=== PATIENT | male | born 1970 | race African-American/Black ===

== ENCOUNTER 2017-06-29 12:30 | Inpatient (IN) | payer MEDICARE, MEDICAID ==
[~2017-06-29] VITALS: Ht 180.3 cm; Wt 70.8 kg
[~2017-06-29 12:30] MED LIST: ACET325T9 PO; AMLO10TA2 PO; AMLO5TAB2 PO; COLC0.6C3 PO; COLC0.6T34 PO; FOLI1TAB16 PO; FURO40TA4 PO; HYDR-2758 PO; HYDR-2762 PO; HYDR-2766 PO; METO50TA2 PO; OXYC10TA PO; PRED20TA PO; SODI650T PO; Sennosides/Docusate Sodium PO; [UNRECOGNIZED DRUG - OTHER]; folic; sodium bicarbonate
--- NOTE | 2017-06-29 13:04 | PHYS DOC ---
Past Medical History Past Medical History: Anemia, Hypertension, Renal Failure, Sickle Cell Disease Past Surgical History: No Surgical History, Other Additional Past Surgical Histo: "surgery on hand for injury" Alcohol Use: Occasionally Drug Use: Marijuana Adult General Chief Complaint Chief Complaint: LOWER EXT PAIN HPI HPI Patient is a 47 year old male who presents with left leg pain & swelling. The patient reports pain behind his left knee & in his left calf. Denies trauma. Reports increased bilateral lower extremity swelling. Denies fevers/chills, cough, chest pain, shortness of breath. He has history of sickle cell anemia though this is unusual pain pattern for him until the past 2 months. Denies CHF but chart indicates previous admit for CHF exacerbation. Denies DVT/PE. Review of Systems Review of Systems Constitutional: Denies fever or chills Eyes: Denies change in visual acuity HENT: Denies nasal congestion or sore throat Respiratory: Denies cough or shortness of breath Cardiovascular: Denies chest pain or edema GI: Denies abdominal pain, nausea, vomiting Musculoskeletal: Reports knee and lower extremity pain Integument: Denies rash or skin lesions Neurologic: Denies headache, focal weakness or sensory changes Allergies Allergies Allergies Coded Allergies Type Severity Reaction Last Updated Verified morphine Allergy Severe Anaphylaxis, takes lortab at home 10/10/16 Yes Physical Exam Physical Exam Constitutional: Well developed, well nourished, no acute distress, non-toxic appearance. HENT: Normocephalic, atraumatic, bilateral external ears normal, oropharynx moist, nose normal. Eyes: PERRLA, EOMI, conjunctiva normal, no discharge. Neck: supple, no stridor. Cardiovascular: RRR, no murmurs, edema as below Lungs & Thorax: LCTAB, no wheezing, no respiratory distress. Abdomen: soft, nontender, nondistended. Skin: Warm, dry, no erythema, no rash. Back: No tenderness. Extremities: Bilateral lower extremities 2+ pitting edema extending to calves, left knee no swelling or deformity, no anterior or medial/lateral tenderness, tenderness posteriorly, calf tenderness with palpation, dp/pt 2+, sensation intact to foot, foot is warm with cap refill < 2 sec. Neurologic: Alert and oriented X 3, no focal deficits noted. Psychologic: Affect normal, judgement normal, mood normal. Current Patient Data Vital Signs Vital Signs Date Time Temp Pulse Resp B/P (MAP) Pulse Ox O2 Delivery O2 Flow Rate FiO2 06/29/17 13:41 76 25 186/120 (142) 96 Nasal Cannula 2.0 06/29/17 12:46 99.2 99.2 Lab Values Laboratory Tests Test 06/29/17 13:08 White Blood Count 13.8 x10^3/uL (4.0-11.0) H Red Blood Count 1.83 x10^6/uL (4.30-5.70) L Hemoglobin 6.1 g/dL (13.0-17.5) *L Hematocrit 17.3 % (39.0-53.0) *L Mean Corpuscular Volume 95 fL (79-100) Mean Corpuscular Hemoglobin 34 pg (25-35) Mean Corpuscular Hemoglobin Concent 36 g/dL (31-37) Red Cell Distribution Width 24.8 % (11.5-14.5) H Platelet Count 203 x10^3/uL (140-400) Neutrophils (%) (Auto) 40 % (31-73) Lymphocytes (%) (Auto) 44 % (24-48) Monocytes (%) (Auto) 12 % (0-9) H Eosinophils (%) (Auto) 3 % (0-3) Basophils (%) (Auto) 2 % (0-3) Neutrophils # (Auto) 5.5 x10^3uL (1.8-7.7) Lymphocytes # (Auto) 6.1 x10^3/uL (1.0-4.8) H Monocytes # (Auto) 1.6 x10^3/uL (0.0-1.1) H Eosinophils # (Auto) 0.4 x10^3/uL (0.0-0.7) Basophils # (Auto) 0.3 x10^3/uL (0.0-0.2) H Platelet Estimate Pending Reticulocyte Count (auto) 8.3 % (0.5-2.5) H Prothrombin Time 13.0 SEC (11.7-14.0) Prothrombin Time INR 1.0 (0.8-1.1) PTT 30 SEC (24-38) Sodium Level 142 mmol/L (136-145) Potassium Level 3.8 mmol/L (3.5-5.1) Chloride Level 102 mmol/L (98-107) Carbon Dioxide Level 37 mmol/L (21-32) H Anion Gap 3 (6-14) L Blood Urea Nitrogen 26 mg/dL (8-26) Creatinine 2.2 mg/dL (0.7-1.3) H Estimated GFR (Cockcroft-Gault) 39.2 BUN/Creatinine Ratio 12 (6-20) Glucose Level 84 mg/dL (70-99) Calcium Level 7.9 mg/dL (8.5-10.1) L Total Bilirubin 2.0 mg/dL (0.2-1.0) H Aspartate Amino Transferase (AST) 65 U/L (15-37) H Alanine Aminotransferase (ALT) 21 U/L (16-63) Alkaline Phosphatase 174 U/L (46-116) H Troponin I Quantitative < 0.017 ng/mL (0.000-0.055) BZ-Ewa-N-Type Natriuretic Peptide 2405 pg/mL (0-124) H Total Protein 6.7 g/dL (6.4-8.2) Albumin 2.4 g/dL (3.4-5.0) L Albumin/Globulin Ratio 0.6 (1.0-1.7) L Laboratory Tests 06/29/17 13:08 Laboratory Tests 06/29/17 13:08 EKG EKG interpreted by me: NSR rate 73, no ST elevation, T waves inverted leads V5-V6, QTc prolonged 489 ms, no ectopy.[] Radiology/Procedures Radiology/Procedures PROCEDURE: VENOUS LOWER EXTREMITY LEFT Exam performed: Left lower extremity venous Doppler. Clinical Indication: Left lower maturity venous and swelling Date of Service:06/29/17 Comparison : None available Discussion: Multiple longitudinal and transverse high resolution real-time images of the venous system of left lower extremity were obtained with color and Doppler sampling and spectral analysis. The common femoral, superficial femoral, popliteal and proximal calf veins are all patent and demonstrate normal flow and compressibility. Normal respiratory phasicity and augmentation is present. Lymph nodes are seen in the groin area. Soft tissue swelling is seen in the medial left calf. Impression: Normal color duplex ultrasound of the venous system of left lower extremity. DICTATED and SIGNED BY: RUSS BLANCO MD DATE: 06/29/17 1336 PROCEDURE: KNEE LEFT 4V Indication knee pain. Nontraumatic. AP oblique and lateral views of the left knee were obtained as well as a sunrise view. No bony abnormality is seen DICTATED and SIGNED BY: CLARISA SPAULDING MD DATE: 06/29/17 1431 PROCEDURE: CHEST AP ONLY Indication shortness of air. A single view of the chest was obtained and is compared to an exam October 10, 2016. There is generalized cardiomegaly similar to the previous study. There are patchy infiltrates and redistribution to the upper lobes suggesting a component of mild pulmonary vascular congestion. There is no focal consolidated pneumonia seen. There is no pleural fluid. There is no pneumothorax. IMPRESSION: Generalized cardiomegaly. Probable mild pulmonary vascular congestion. No focal consolidated pneumonia is seen DICTATED and SIGNED BY: CLARISA SPAULDING MD DATE: 06/29/17 1416 [] Course & Med Decision Making Course & Med Decision Making Pertinent Labs and Imaging studies reviewed. (See chart for details) The patient presents with leg pain & swelling. Noted to be hypoxic on room air with sats 89% on room air. Placed on oxygen by nasal cannula. Gave aspirin, obtained labs, EKG, CXR. He had pulmonary edema & peripheral edema with elevated BNP. Gave lasix. Hemoglobin is 6, baseline 5-6 so will not transfuse at this time but will repeat CBC in the AM. Gave hydralazine for HTN. Recommend admission for further evaluation & treatment. He agrees with plan of care. Discussed with Dr. Toro who agrees to admit to inpatient status, cardiology consult placed. The patient is admitted in stable condition. [] Dragon Disclaimer Dragon Disclaimer This electronic medical record was generated, in whole or in part, using a voice recognition dictation system. Departure Departure Impression: Primary Impression: CHF (congestive heart failure) Additional Impressions: Accelerated hypertension Chronic anemia Acute kidney failure Disposition: ADMITTED INPATIENT Admitting Physician: Gloria Toro Condition: STABLE Referrals: GLORIA TORO MD (PCP) Problem Qualifiers SAVANAH ECHEVARRIA MD Jun 29, 2017 13:04
[2017-06-29 13:28] LABS: BASO # 0.3 x10^3/uL (0.0-0.2); BASO % 2 % (0-3); EOS % 3 % (0-3); LYMPH # 6.1 x10^3/uL (1.0-4.8); LYMPH % 44 % (24-48); MEAN CORPUSCULAR HEMOGLOBIN 34 pg (25-35); MEAN CORPUSCULAR HGB CONC 36 g/dL (31-37); MEAN CORPUSCULAR VOLUME 95 fL (79-100); MONO % 12 % (0-9); NEUT % 40 % (31-73); PLATELET COUNT 203 x10^3/uL (140-400); RED BLOOD COUNT 1.83 x10^6/uL (4.30-5.70); RED CELL DISTRIBUTION WIDTH 24.8 % (11.5-14.5); WHITE BLOOD COUNT 13.8 x10^3/uL (4.0-11.0)
[2017-06-29 13:31] LABS: HEMATOCRIT 17.3 % (39.0-53.0); HEMOGLOBIN 6.1 g/dL (13.0-17.5)
[2017-06-29 13:32] LABS: RETIC COUNT 8.3 % (0.5-2.5)
[2017-06-29 13:40] LABS: CALCIUM 7.9 mg/dL (8.5-10.1); CREATININE 2.2 mg/dL (0.7-1.3); GFR 39.2; POTASSIUM 3.8 mmol/L (3.5-5.1)
--- NOTE | 2017-06-29 13:40 | EKG ---
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
--- NOTE | 2017-06-29 13:51 | RAD ---
Exam performed: Left lower extremity venous Doppler. Clinical Indication: Left lower maturity venous and swelling Date of Service:06/29/17 Comparison : None available Discussion: Multiple longitudinal and transverse high resolution real-time images of the venous system of left lower extremity were obtained with color and Doppler sampling and spectral analysis. The common femoral, superficial femoral, popliteal and proximal calf veins are all patent and demonstrate normal flow and compressibility. Normal respiratory phasicity and augmentation is present. Lymph nodes are seen in the groin area. Soft tissue swelling is seen in the medial left calf. Impression: Normal color duplex ultrasound of the venous system of left lower extremity.
[2017-06-29 13:53] LABS: ALBUMIN 2.4 g/dL (3.4-5.0); ALBUMIN/GLOBULIN RATIO 0.6 (1.0-1.7); TOTAL PROTEIN 6.7 g/dL (6.4-8.2)
[2017-06-29] MEDS ORDERED: hydrALAZINE 20 MG/ML VIAL. IVP ONE (14:30)
[2017-06-29] MEDS ORDERED: ASPIRIN 325 MG TABLET PO ONE (14:30)
[2017-06-29] MEDS ORDERED: FUROSEMIDE 40 MG/4 ML VIAL. IVP ONE (14:30)
--- NOTE | 2017-06-29 14:31 | RAD ---
Indication shortness of air. A single view of the chest was obtained and is compared to an exam October 10, 2016. There is generalized cardiomegaly similar to the previous study. There are patchy infiltrates and redistribution to the upper lobes suggesting a component of mild pulmonary vascular congestion. There is no focal consolidated pneumonia seen. There is no pleural fluid. There is no pneumothorax. IMPRESSION: Generalized cardiomegaly. Probable mild pulmonary vascular congestion. No focal consolidated pneumonia is seen
--- NOTE | 2017-06-29 14:35 | RAD ---
Indication knee pain. Nontraumatic. AP oblique and lateral views of the left knee were obtained as well as a sunrise view. No bony abnormality is seen
[2017-06-29] MEDS: fentaNYL PF VIAL 100 MCG/2 ML VIAL IV PRN ×3 (14:43→18:04)
[2017-06-29] MEDS ORDERED: ONDANSETRON PF 4 MG/2 ML VIAL. IV PRN (14:45)
[2017-06-29] MEDS ORDERED: ACETAMINOPHEN 325 MG TABLET. PO PRN (14:45)
--- NOTE | 2017-06-29 16:15 | PDOC2 ---
VICKY HARRELL SOLE SEAMER 06/29/17 1615: CARDIAC CONSULT DATE OF CONSULT Date of Consult DATE: 06/29/17 TIME: 15:54 REASON FOR CONSULT Reason for Consult: CHF REFERRING PHYSICIAN Referring Physician: DR. SAVANAH ECHEVARRIA SOURCE Source: Chart review, Patient HISTORY OF PRESENT ILLNESS HISTORY OF PRESENT ILLNESS 47 year old male with a 2 day history of constant left leg pain described as sharp and exacerbated by standing on the leg. Two month history of LE edema. Car trip from to [place] to [place] at the end of May. CXR not consistent with acute CHF. NT-proBNP 2405 associated with Hgb of 6.1 and Cr of 2.2; treated with 40 mg IV furosemide in the ER. LE venous study negative for DVT in LLE and no acute abnormalities seen in plain film of knee. HTN with SBP > 180. Currently comfortable in bed. EKG without acute changes. Denies chest pain or pressure as well as dyspnea, LUNA, PND and orthopnea. Reason for Visit: LLE pain PAST MEDICAL HISTORY Cardiovascular: HTN, Pulmonary hypertension (dx 2014 with PA of 75 mm Hg) GI: Constipation, Other (cholelithiasis; chronic pancreatitis) Heme/Onc: Anemia NOS, Sickle cell disease Rheumatologic: Gout Renal/: Chronic renal insuff (stage 3) PAST SURGICAL HISTORY Past Surgical History: No pertinent history FAMILY HISTORY Family History: Other (sickle cell) SOCIAL HISTORY Smoke: No ALCOHOL: none Drugs: None Lives: with Family CURRENT MEDICATIONS CURRENT MEDICATIONS Current Medications Medications (Trade) Dose Ordered Sig/Susana Route PRN Reason Start Time Stop Time Status Last Admin Dose Admin Fentanyl Citrate (Fentanyl 2ml Vial) 50 mcg PRN Q15MIN PRN IV PAIN GREATER THAN 3/10 06/29/17 14:30 06/30/17 14:29 06/29/17 14:43 Hydralazine HCl (Apresoline Inj) 10 mg 1X ONCE IVP 06/29/17 14:30 06/29/17 14:31 DC 06/29/17 14:48 Aspirin (Edgard Aspirin) 325 mg 1X ONCE PO 06/29/17 14:30 06/29/17 14:31 DC 06/29/17 14:46 Furosemide (Lasix) 40 mg 1X ONCE IVP 06/29/17 14:30 06/29/17 14:31 DC 06/29/17 14:45 Fentanyl Citrate (Fentanyl 2ml Vial) 50 mcg PRN Q2HR PRN IV PAIN 06/29/17 14:45 06/30/17 14:44 06/29/17 15:44 ALLERGIES ALLERGIES: Coded Allergies: morphine (Verified Allergy, Severe, Anaphylaxis, takes lortab at home, ) tolerates hydromorphone and hydrocodone ROS Review of System 14 point review with pertinent positives in HPI PHYSICAL EXAM General: Alert, Oriented X3, Cooperative, No acute distress HEENT: Atraumatic, PERRLA Lungs: Clear to auscultation, Normal air movement Heart: Regular rate, Normal S1, Normal S2, Other (3/6 CORY) Abdomen: Normal bowel sounds, Soft Extremities: Other (2+ LE edema bilaterally to about knees) Skin: No rashes Neuro: Normal speech Psych/Mental Status: Mental status NL, Mood NL MUSCULOSKELETAL: No deformity VITALS VITALS Vital Signs Date Time Temp Pulse Resp B/P (MAP) Pulse Ox O2 Delivery O2 Flow Rate FiO2 06/29/17 15:44 98 2.0 06/29/17 14:48 76 171/121 06/29/17 14:43 18 Room Air 06/29/17 12:46 99.2 99.2 LABS Lab: Laboratory Tests Test 06/29/17 13:08 White Blood Count 13.8 x10^3/uL (4.0-11.0) Red Blood Count 1.83 x10^6/uL (4.30-5.70) Hemoglobin 6.1 g/dL (13.0-17.5) Hematocrit 17.3 % (39.0-53.0) Mean Corpuscular Volume 95 fL (79-100) Mean Corpuscular Hemoglobin 34 pg (25-35) Mean Corpuscular Hemoglobin Concent 36 g/dL (31-37) Red Cell Distribution Width 24.8 % (11.5-14.5) Platelet Count 203 x10^3/uL (140-400) Neutrophils (%) (Auto) 40 % (31-73) Lymphocytes (%) (Auto) 44 % (24-48) Monocytes (%) (Auto) 12 % (0-9) Eosinophils (%) (Auto) 3 % (0-3) Basophils (%) (Auto) 2 % (0-3) Neutrophils # (Auto) 5.5 x10^3uL (1.8-7.7) Lymphocytes # (Auto) 6.1 x10^3/uL (1.0-4.8) Monocytes # (Auto) 1.6 x10^3/uL (0.0-1.1) Eosinophils # (Auto) 0.4 x10^3/uL (0.0-0.7) Basophils # (Auto) 0.3 x10^3/uL (0.0-0.2) Reticulocyte Count (auto) 8.3 % (0.5-2.5) Prothrombin Time 13.0 SEC (11.7-14.0) Prothromb Time International Ratio 1.0 (0.8-1.1) Activated Partial Thromboplast Time 30 SEC (24-38) Sodium Level 142 mmol/L (136-145) Potassium Level 3.8 mmol/L (3.5-5.1) Chloride Level 102 mmol/L (98-107) Carbon Dioxide Level 37 mmol/L (21-32) Anion Gap 3 (6-14) Blood Urea Nitrogen 26 mg/dL (8-26) Creatinine 2.2 mg/dL (0.7-1.3) Estimated GFR (Cockcroft-Gault) 39.2 BUN/Creatinine Ratio 12 (6-20) Glucose Level 84 mg/dL (70-99) Calcium Level 7.9 mg/dL (8.5-10.1) Total Bilirubin 2.0 mg/dL (0.2-1.0) Aspartate Amino Transf (AST/SGOT) 65 U/L (15-37) Alanine Aminotransferase (ALT/SGPT) 21 U/L (16-63) Alkaline Phosphatase 174 U/L (46-116) Troponin I Quantitative < 0.017 ng/mL (0.000-0.055) YP-Pis-M-Type Natriuretic Peptide 2405 pg/mL (0-124) Total Protein 6.7 g/dL (6.4-8.2) Albumin 2.4 g/dL (3.4-5.0) Albumin/Globulin Ratio 0.6 (1.0-1.7) IMAGES IMAGES A single view of the chest was obtained and is compared to an exam October 10, 2016. There is generalized cardiomegaly similar to the previous study. There are patchy infiltrates and redistribution to the upper lobes suggesting a component of mild pulmonary vascular congestion. There is no focal consolidated pneumonia seen. There is no pleural fluid. There is no pneumothorax. IMPRESSION: Generalized cardiomegaly. Probable mild pulmonary vascular congestion. No focal consolidated pneumonia is seen EKG EKG SR ECHOCARDIOGRAM ECHOCARDIOGRAM SEP 2016: TTE: The left ventricular systolic function is normal. The Ejection Fraction is 55-60%. There is normal LV segmental wall motion. Transmitral Doppler flow pattern is Grade I-abnormal relaxation pattern. The left atrium is moderately dilated. Trace to mild aortic regurgitation. Mild mitral regurgitation. Trace tricuspid regurgitation. There is moderate-severe pulmonary hypertension. The PA pressure was estimated at 59 mmHg. There is no evidence of significant pericardial effusion. ASSESSMENT/PLAN ASSESSMENT/PLAN 1. LLE pain negative for DVT or knee abnormality gout history 2. ? CHF CXR without significant findings and NT-proBNP elevated in the setting of CKD and anemia LLE - ? related to CKD and albumin level of 2.4 treated with Lasix in ER 3. murmur mild aortic and mitral disease on echo in Sep repeat echo tomorrow 4. sickle cell anemia Hgb 6.1 - defer to primary and/or heme-onc Problems: KAR GASTON MD 06/29/17 2219: CARDIAC CONSULT ALLERGIES ALLERGIES: Coded Allergies: morphine (Verified Allergy, Severe, Anaphylaxis, takes lortab at home, ) tolerates hydromorphone and hydrocodone ASSESSMENT/PLAN ASSESSMENT/PLAN Pt. seen and examined. 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 Problems: VICKY HARRELL APRN Jun 29, 2017 16:15 KAR GASTON MD Jun 29, 2017 22:19
[2017-06-29 16:20] LABS: % BASOS 1 % (0-3); % EOS 1 % (0-5); NUCLEATED RBC 5
[2017-06-29 16:22] LABS: ANISOCYTOSIS MOD; PLT ESTIMATE ADEQUATE (ADEQUATE); POLYCHROMASIA MOD; SICKLE CELLS MOD
[2017-06-29 16:23] LABS: SCHISTOCYTES FEW; TARGET CELLS MOD
[2017-06-29] MEDS ORDERED: FEBU80TA2 PO (16:23)
[2017-06-29] MEDS ORDERED: POTA20TA82 PO (16:23)
[2017-06-29] MEDS ORDERED: DOXA2TAB PO (16:23)
[2017-06-29] MEDS ORDERED: MONT10TA9 PO (16:23)
[2017-06-29] MEDS ORDERED: SODI650T PO (16:23)
[2017-06-29] MEDS ORDERED: FURO40TA4 PO (16:23)
[2017-06-29] MEDS ORDERED: CALCIUM CARBONATE 500 MG TAB.CHEW PO ONE (17:00)
[2017-06-29 19:45] VITALS: BP 146/93
[2017-06-29] MEDS: MONTELUKAST SODIUM 10 MG TABLET. PO SCH (20:29)
[2017-06-29] MEDS: SODIUM BICARBONATE 650 MG TABLET. PO SCH (20:29)
[2017-06-29] MEDS: HYDROcodone/APAP 10/325 1 TAB TABLET PO PRN (20:30)
[2017-06-29] MEDS ORDERED: METOPROLOL TART IMMED RELEASE 50 MG TABLET. PO SCH (21:00)
[2017-06-29 23:10] VITALS: BP 174/112
[2017-06-29] MEDS: hydrALAZINE 20 MG/ML VIAL. IVP PRN (23:42)
[2017-06-30 03:24] LABS: CALCIUM 8.1 mg/dL (8.5-10.1); CREATININE 2.3 mg/dL (0.7-1.3); GFR 37.2; POTASSIUM 3.9 mmol/L (3.5-5.1)
[2017-06-30 03:25] VITALS: BP 171/114
[2017-06-30 03:28] LABS: BASO # 0.2 x10^3/uL (0.0-0.2); BASO % 1 % (0-3); EOS % 3 % (0-3); LYMPH # 6.9 x10^3/uL (1.0-4.8); LYMPH % 52 % (24-48); MEAN CORPUSCULAR HEMOGLOBIN 33 pg (25-35); MEAN CORPUSCULAR HGB CONC 34 g/dL (31-37); MEAN CORPUSCULAR VOLUME 97 fL (79-100); MONO % 11 % (0-9); NEUT % 33 % (31-73); PLATELET COUNT 190 x10^3/uL (140-400); RED BLOOD COUNT 1.93 x10^6/uL (4.30-5.70); RED CELL DISTRIBUTION WIDTH 25.4 % (11.5-14.5); WHITE BLOOD COUNT 13.2 x10^3/uL (4.0-11.0)
[2017-06-30] MEDS: fentaNYL PF VIAL 100 MCG/2 ML VIAL IV PRN (03:32)
[2017-06-30 04:50] LABS: HEMOGLOBIN 6.4 g/dL (13.0-17.5)
[2017-06-30 04:51] LABS: HEMATOCRIT 18.7 % (39.0-53.0)
[2017-06-30] MEDS: HYDROcodone/APAP 10/325 1 TAB TABLET PO PRN ×3 (05:30→21:12)
[2017-06-30 07:00] VITALS: BP 178/107
--- NOTE | 2017-06-30 08:29 | PDOC1 ---
AGUILA CHAVEZ TUFTING MACHINE OPERATOR 06/30/17 0829: HISTORY AND PHYSICAL Chief Complaint Chief Complaint This 47 year old male has been admitted with a chief complaint of swelling pain LLE. He has been followed in the office for chronic swelling and pain of the left lower extremity with acute flares. Acute on chronic gout has been treated out patient by Dr. Boss. He is to be taking Uloric and colcrys. He has chronic sickle cell crisis with elevated retic counts in the office. He was to see Dr. Sweet out patient and did not keep appt. He has CKD III and is on sodium bicarb. He was to follow up with Dr. Tate out patient and did not keep appt. He has elevated pulmonary artery pressures and was to see cardiology out patient for probable pulmonary HTN and he did not keep appt. He presented to the ED yesterday with c/o increased swelling and pain in the LLE with inability to stand and walk. Venous doppler LLE negative for DVT but did note swelling medial calf. CXR mild pulmonary congestion suggestive CHF. BNP 2405 with underlying CKD III. He reports when laying flat will wake with shortness of breath. He received Lasix 40mg in the ER. WBC 13.8 with retic count 8.3. He has had chronic elevation WBC and retic count in the office. UA dip recently was negative and his only c/o is pain behind the L knee and swelling of the L leg which affects his ability to ambulate. He has been using a cane to stabilize his gait. He has CKD III and is on Lasix 40mg po for fluid retention. His Hgb was 6.1 on admission and he is transfused when less than 5.0. Due to the chronic anemia his O2 sats are low. He developed malignant HTN and hydralazine is ordered prn. Cardiology has been consulted. Additional consultations have been placed with hematology and nephrology. He is admitted to the [facility]. Problem List Problems Medical Problems: (1) Accelerated hypertension Status: Acute (2) Acute kidney failure Status: Acute (3) Chronic anemia Status: Acute Past Medical History Cardiovascular: CHF (diastolic EF 55-60% Sep 2016), HTN, Valve insufficiency ( tr to mild AR, mild MR tr TR ), Pulmonary hypertension (dx 2016 with PA of 59 mm Hg) Pulmonary: Other GI: Constipation, Other (cholelithiasis; chronic pancreatitis) Heme/Onc: Anemia NOS (Sickle cell ), Sickle cell disease Hepatobiliary: Cholelithiasis, Other (chronic pancreatitis ) Musculoskeletal: Other Rheumatologic: Gout Renal/: Chronic renal insuff (CKD III baseline Cr 1.8-2.1) Past Surgical History PSH LH surgery Past Surgical History: No pertinent history Past Family History PFH SS trait parents Family History: Other (sickle cell) Past Social History PSH single, h/o cigarette smoking, current cigar smoking. Neg ETOH or illicit drug use. Review of Symptoms Review of Symptoms A 14 point ROS was completed with the following noted as positive: per HPI Other systems reviewed and negative. Medications Current Medications Acetaminophen (Tylenol) 650 mg PRN Q4HRS PRN PO FEVER; Start 06/29/17 at 14:45 ; Stop 06/30/17 at 14:44 Acetaminophen/ Hydrocodone Bitart (Lortab 10/325) 1 tab PRN Q6HRS PRN PO PAIN Last administered on 06/30/17 05:30; Start 06/29/17 at 18:15 Amlodipine Besylate (Norvasc) 5 mg DAILY PO ; Start 06/30/17 at 09:00 Aspirin (Edgard Aspirin) 325 mg 1X ONCE PO Last administered on 06/29/17 14:46 ; Start 06/29/17 at 14:30; Stop 06/29/17 at 14:31; Status DC Calcium Carbonate/ Glycine (Tums) 500 mg 1X ONCE PO ; Start 06/29/17 at 17:00; Stop 06/29/17 at 17:01; Status Cancel Doxazosin Mesylate (Cardura) 2 mg DAILY PO ; Start 06/30/17 at 09:00 Febuxostat (Uloric) 80 mg DAILY PO ; Start 06/30/17 at 09:00 Fentanyl Citrate (Fentanyl 2ml Vial) 50 mcg PRN Q15MIN PRN IV PAIN GREATER THAN 3/10 Last administered on 06/29/17 18:04; Start 06/29/17 at 14:30; Stop 06/30/17 at 14:29 Fentanyl Citrate (Fentanyl 2ml Vial) 50 mcg PRN Q2HR PRN IV PAIN Last administered on 06/30/17 03:32; Start 06/29/17 at 14:45; Stop 06/30/17 at 14: 44 Folic Acid (Folic Acid) 1 mg DAILY PO ; Start 06/30/17 at 09:00 Furosemide (Lasix) 40 mg 1X ONCE IVP Last administered on 06/29/17 14:45; Start 06/29/17 at 14:30; Stop 06/29/17 at 14:31; Status DC Furosemide (Lasix) 40 mg DAILY PO ; Start 06/30/17 at 09:00 Hydralazine HCl (Apresoline Inj) 10 mg 1X ONCE IVP Last administered on 14:48; Start 06/29/17 at 14:30; Stop 06/29/17 at 14:31; Status DC Hydralazine HCl (Apresoline Inj) 10 mg PRN Q4HRS PRN IVP ELEVATED BP, SEE COMMENTS Last administered on 06/29/17 23:42; Start 06/29/17 at 16:00 Metoprolol Tartrate (Lopressor) 50 mg BID PO Last administered on 06/29/17 20: 29; Start 06/29/17 at 21:00 Montelukast Sodium (Singulair) 10 mg HS PO Last administered on 06/29/17 20:29 ; Start 06/29/17 at 21:00 Ondansetron HCl (Zofran) 4 mg PRN Q8HRS PRN IV NAUSEA/VOMITING; Start 06/29/17 at 14:45; Stop 06/30/17 at 14:44 Potassium Chloride (Klor-Con) 20 meq DAILYWBKFT PO ; Start 06/30/17 at 08:00 Sodium Bicarbonate (Sodium Bicarbonate) 1,300 mg TID PO Last administered on 20:29; Start 06/29/17 at 21:00 Allergy Allergies Coded Allergies Type Severity Reaction Last Updated Verified morphine Allergy Severe Anaphylaxis, takes lortab at home 10/10/16 Yes Physical Exam Physical Exam General appearance - alert, ill appearing, and in no distress Mental Status - alert, oriented to person, place, and time, affect appropriate to mood Head - normal Chest - clear to auscultation, no wheezes, rales or rhonchi, symmetric air entry Heart - S1 and S2 normal Abdomen - soft, nontender, nondistended, BS + Musculoskeletal - mild swelling medial L calf and tender post knee. swelling subsided anterior knee Extremities - no pedal edema Skin - warm and dry VTE Prophylaxis Ordered VTE Prophylaxis Devices: Yes VTE Pharmacological Prophylaxi: No Assessment Labs Laboratory Tests Test 06/29/17 13:08 06/29/17 20:45 06/30/17 02:35 White Blood Count 13.8 x10^3/uL (4.0-11.0) 13.2 x10^3/uL (4.0-11.0) Red Blood Count 1.83 x10^6/uL (4.30-5.70) 1.93 x10^6/uL (4.30-5.70) Hemoglobin 6.1 g/dL (13.0-17.5) 6.4 g/dL (13.0-17.5) Hematocrit 17.3 % (39.0-53.0) 18.7 % (39.0-53.0) Mean Corpuscular Volume 95 fL (79-100) 97 fL (79-100) Mean Corpuscular Hemoglobin 34 pg (25-35) 33 pg (25-35) Mean Corpuscular Hemoglobin Concent 36 g/dL (31-37) 34 g/dL (31-37) Red Cell Distribution Width 24.8 % (11.5-14.5) 25.4 % (11.5-14.5) Platelet Count 203 x10^3/uL (140-400) 190 x10^3/uL (140-400) Neutrophils (%) (Auto) 40 % (31-73) 33 % (31-73) Lymphocytes (%) (Auto) 44 % (24-48) 52 % (24-48) Monocytes (%) (Auto) 12 % (0-9) 11 % (0-9) Eosinophils (%) (Auto) 3 % (0-3) 3 % (0-3) Basophils (%) (Auto) 2 % (0-3) 1 % (0-3) Neutrophils # (Auto) 5.5 x10^3uL (1.8-7.7) 4.3 x10^3uL (1.8-7.7) Lymphocytes # (Auto) 6.1 x10^3/uL (1.0-4.8) 6.9 x10^3/uL (1.0-4.8) Monocytes # (Auto) 1.6 x10^3/uL (0.0-1.1) 1.5 x10^3/uL (0.0-1.1) Eosinophils # (Auto) 0.4 x10^3/uL (0.0-0.7) 0.4 x10^3/uL (0.0-0.7) Basophils # (Auto) 0.3 x10^3/uL (0.0-0.2) 0.2 x10^3/uL (0.0-0.2) Segmented Neutrophils % 50 % (35-66) Band Neutrophils % 2 % (0-9) Lymphocytes % 39 % (24-48) Monocytes % 7 % (0-10) Eosinophils % 1 % (0-5) Basophils % 1 % (0-3) Nucleated Red Blood Cells 5 Platelet Estimate Adequate (ADEQUATE) Polychromasia Mod Anisocytosis Mod Sickle Cells Mod Target Cells Mod Schistocytes Few Reticulocyte Count (auto) 8.3 % (0.5-2.5) Prothrombin Time 13.0 SEC (11.7-14.0) Prothromb Time International Ratio 1.0 (0.8-1.1) Activated Partial Thromboplast Time 30 SEC (24-38) Sodium Level 142 mmol/L (136-145) 143 mmol/L (136-145) Potassium Level 3.8 mmol/L (3.5-5.1) 3.9 mmol/L (3.5-5.1) Chloride Level 102 mmol/L (98-107) 104 mmol/L (98-107) Carbon Dioxide Level 37 mmol/L (21-32) 32 mmol/L (21-32) Anion Gap 3 (6-14) 7 (6-14) Blood Urea Nitrogen 26 mg/dL (8-26) 28 mg/dL (8-26) Creatinine 2.2 mg/dL (0.7-1.3) 2.3 mg/dL (0.7-1.3) Estimated GFR (Cockcroft-Gault) 39.2 37.2 BUN/Creatinine Ratio 12 (6-20) Glucose Level 84 mg/dL (70-99) 115 mg/dL (70-99) Calcium Level 7.9 mg/dL (8.5-10.1) 8.1 mg/dL (8.5-10.1) Total Bilirubin 2.0 mg/dL (0.2-1.0) Aspartate Amino Transf (AST/SGOT) 65 U/L (15-37) Alanine Aminotransferase (ALT/SGPT) 21 U/L (16-63) Alkaline Phosphatase 174 U/L (46-116) Troponin I Quantitative < 0.017 ng/mL (0.000-0.055) < 0.017 ng/mL (0.000-0.055) < 0.017 ng/mL (0.000-0.055) YM-Yow-[id number]-Type Natriuretic Peptide 2405 pg/mL (0-124) Total Protein 6.7 g/dL (6.4-8.2) Albumin 2.4 g/dL (3.4-5.0) Albumin/Globulin Ratio 0.6 (1.0-1.7) Laboratory Tests Test 06/29/17 13:08 06/29/17 20:45 06/30/17 02:35 White Blood Count 13.8 x10^3/uL (4.0-11.0) 13.2 x10^3/uL (4.0-11.0) Red Blood Count 1.83 x10^6/uL (4.30-5.70) 1.93 x10^6/uL (4.30-5.70) Hemoglobin 6.1 g/dL (13.0-17.5) 6.4 g/dL (13.0-17.5) Hematocrit 17.3 % (39.0-53.0) 18.7 % (39.0-53.0) Mean Corpuscular Volume 95 fL (79-100) 97 fL (79-100) Mean Corpuscular Hemoglobin 34 pg (25-35) 33 pg (25-35) Mean Corpuscular Hemoglobin Concent 36 g/dL (31-37) 34 g/dL (31-37) Red Cell Distribution Width 24.8 % (11.5-14.5) 25.4 % (11.5-14.5) Platelet Count 203 x10^3/uL (140-400) 190 x10^3/uL (140-400) Neutrophils (%) (Auto) 40 % (31-73) 33 % (31-73) Lymphocytes (%) (Auto) 44 % (24-48) 52 % (24-48) Monocytes (%) (Auto) 12 % (0-9) 11 % (0-9) Eosinophils (%) (Auto) 3 % (0-3) 3 % (0-3) Basophils (%) (Auto) 2 % (0-3) 1 % (0-3) Neutrophils # (Auto) 5.5 x10^3uL (1.8-7.7) 4.3 x10^3uL (1.8-7.7) Lymphocytes # (Auto) 6.1 x10^3/uL (1.0-4.8) 6.9 x10^3/uL (1.0-4.8) Monocytes # (Auto) 1.6 x10^3/uL (0.0-1.1) 1.5 x10^3/uL (0.0-1.1) Eosinophils # (Auto) 0.4 x10^3/uL (0.0-0.7) 0.4 x10^3/uL (0.0-0.7) Basophils # (Auto) 0.3 x10^3/uL (0.0-0.2) 0.2 x10^3/uL (0.0-0.2) Segmented Neutrophils % 50 % (35-66) Band Neutrophils % 2 % (0-9) Lymphocytes % 39 % (24-48) Monocytes % 7 % (0-10) Eosinophils % 1 % (0-5) Basophils % 1 % (0-3) Nucleated Red Blood Cells 5 Platelet Estimate Adequate (ADEQUATE) Polychromasia Mod Anisocytosis Mod Sickle Cells Mod Target Cells Mod Schistocytes Few Reticulocyte Count (auto) 8.3 % (0.5-2.5) Prothrombin Time 13.0 SEC (11.7-14.0) Prothromb Time International Ratio 1.0 (0.8-1.1) Activated Partial Thromboplast Time 30 SEC (24-38) Sodium Level 142 mmol/L (136-145) 143 mmol/L (136-145) Potassium Level 3.8 mmol/L (3.5-5.1) 3.9 mmol/L (3.5-5.1) Chloride Level 102 mmol/L (98-107) 104 mmol/L (98-107) Carbon Dioxide Level 37 mmol/L (21-32) 32 mmol/L (21-32) Anion Gap 3 (6-14) 7 (6-14) Blood Urea Nitrogen 26 mg/dL (8-26) 28 mg/dL (8-26) Creatinine 2.2 mg/dL (0.7-1.3) 2.3 mg/dL (0.7-1.3) Estimated GFR (Cockcroft-Gault) 39.2 37.2 BUN/Creatinine Ratio 12 (6-20) Glucose Level 84 mg/dL (70-99) 115 mg/dL (70-99) Calcium Level 7.9 mg/dL (8.5-10.1) 8.1 mg/dL (8.5-10.1) Total Bilirubin 2.0 mg/dL (0.2-1.0) Aspartate Amino Transf (AST/SGOT) 65 U/L (15-37) Alanine Aminotransferase (ALT/SGPT) 21 U/L (16-63) Alkaline Phosphatase 174 U/L (46-116) Troponin I Quantitative < 0.017 ng/mL (0.000-0.055) < 0.017 ng/mL (0.000-0.055) < 0.017 ng/mL (0.000-0.055) IN-Zix-V-Type Natriuretic Peptide 2405 pg/mL (0-124) Total Protein 6.7 g/dL (6.4-8.2) Albumin 2.4 g/dL (3.4-5.0) Albumin/Globulin Ratio 0.6 (1.0-1.7) Plan Plan IMPRESSION: 1. a/c CHF diastolic with normal EF 55-60% Sep 2016 ECHO 2. malignant HTN 3, Acute on chronic L knee pain with swelling 4. anemia SS chronic baseline Hgb 5.0-6.0 5. Sickle cell crisis with elevated retic count 8.3 on admission 6. CKD III baseline Cr 1.8-2.1 7. probable pulmonary HTN with PA pressure Sep 8. valvular insufficiency tr- mild AR, mild MR tr TR 9. Swelling medial calf noted on Venous US LLE 10.moderate chronic PCL malnutrition 11. abnormal LFTs with h/o chronic pancreatitis/cholelithiasis asymptomatic on admission 12. hypoxia chronic secondary to chronic anemia not acute respiratory failure PLAN 06/30/17 CHF -cardiology consult - ECHO pending - CXR mild pulmonary edema - Sep baseline BNP 300s - admit BNP 2405 - Lasix 40mg IV ED - chronic Lasix 40mg po daily -DC weight Sep 162# admit 156.38# LLE pain/swelling - h/o gout flare -check uric acid - continue uloric and restart colcrys 0.6mg daily - swelling improved - L medial calf soft tissue swelling noted = doppler tissue swell and post knee pending SSC - consult hematology -retic count 8.3 with admit WBC 13.8 today 13.2 - no sepsis anemia - Admit Hgb 6.2 today 6.1 monitor - transfuse less than 5.0 or symptomatic malignant HTN - Amlodipine 5mg daily, cardura 2mg at hs, increase metoprolol tart to 100mg daily and monitor for HR <55, hydralazine prn CKD III with worsening renal function - consult nephrology - Admit BUN 26 today 28 - Cr 2.2 today 2.3 elevated LFTS Admit T bili 2.0 AST 65 ALT 21 AP 174 monitor DVT/GI prophylaxis - OOB and ambulation PPI For more details regarding further plans, please refer to the orders. TAWANDA SALAS MD 06/30/17 0939: HISTORY AND PHYSICAL Plan Plan The patient was seen and examined by me. Chart reviewed and plan of care formulated. Discussed with, reviewed and agree with FARM EQUIPMENT MECHANIC's notes, plan of care and orders with modifications as necessary. For more details regarding further plans, please refer to the orders. AGUILA CHAVEZ APRN Jun 30, 2017 08:29 TAWANDA SALAS MD Jun 30, 2017 09:39
[2017-06-30] MEDS ORDERED: METOPROLOL TART IMMED RELEASE 50 MG TABLET. PO SCH (09:00)
[2017-06-30] MEDS ORDERED: DOXAZOSIN MESYLATE 1 MG TABLET. PO SCH (09:00)
[2017-06-30] MEDS ORDERED: amLODIPine BESYLATE 5 MG TABLET PO SCH (09:00)
[2017-06-30] MEDS: SODIUM BICARBONATE 650 MG TABLET. PO SCH ×3 (09:08→21:08)
[2017-06-30] MEDS: FEBUXOSTAT 40 MG TABLET PO SCH (09:08)
[2017-06-30] MEDS: FOLIC ACID 1 MG TABLET. PO SCH (09:08)
[2017-06-30] MEDS: COLCHICINE 0.6 MG TABLET PO SCH (09:08)
[2017-06-30] MEDS: FUROSEMIDE 40 MG TABLET. PO SCH (09:09)
[2017-06-30] MEDS: POTASSIUM CHLORIDE 20 MEQ TABLET.ER. PO SCH (09:09)
[2017-06-30] MEDS: hydrALAZINE 20 MG/ML VIAL. IVP PRN (09:15)
--- NOTE | 2017-06-30 10:48 | RAD ---
Exam performed: Ultrasound evaluation of the left calf. History: Pain left calf and popliteal fossa. Date of service: 06/30/17. Comparison: None available Discussion: Target sonographic evaluation of the left calf and popliteal fossa is performed and images are obtained. No abnormal fluid collection or solid masses are seen in the popliteal fossa and in the area of pain. Impression: No definite sonographic abnormality seen.
[2017-06-30 11:00] VITALS: BP 161/98
--- NOTE | 2017-06-30 11:25 | PDOC2 ---
CONSULT Date of Consult Date of Consult DATE: 06/30/17 TIME: 11:18 Reason for Consult Reason for Consult: RENAL FAILURE Referring Physician Referring Physician: MARITZA Identification/Chief Complaint Chief Complaint SOME SOB AND LEFT LE PAIN AND SWELLING Problems: Source Source: Chart review, Patient History of Present Illness Reason for Visit: THIS IS A 47 YR OLD ADMITTED WITH SOME SOB AND CHF AND LEFT LE PAIN AND SWELLING. BP IS VERY HIGH. HE HAS CKD STAGE 3 WITH A CR OF ABOUT 2.0, HE HAS SKIPPED SEVERAL OF HIS OP OFFICE VISITS. CKD DUE TO HTN. ALSO PERTINENT HX FOR SICKLE CELL ANEMIA AND DZ. CARDIOLOGY EVAL ONGOING AT THIS TIME. HX ALSO NOTABLE FOR GOUT FOR WHICH HE HAS BEEN ON ULORIC AND COLCRYS BUT STATES THAT HE HAS BEEN OUT OF THE LATTER. NO NSAID USE Past Medical History Cardiovascular: CHF (diastolic EF 55-60% Sep 2016), HTN, Valve insufficiency ( tr to mild AR, mild MR tr TR ), Pulmonary hypertension (dx 2016 with PA of 59 mm Hg) Pulmonary: Other GI: Constipation, Other (cholelithiasis; chronic pancreatitis) Heme/Onc: Anemia NOS (Sickle cell ), Sickle cell disease Hepatobiliary: Cholelithiasis, Other (chronic pancreatitis ) Musculoskeletal: Other Rheumatologic: Gout Renal/: Chronic renal insuff (CKD III baseline Cr 1.8-2.1) Past Surgical History Past Surgical History: No pertinent history Family History Family History: Other (sickle cell) Social History No ALCOHOL: none Drugs: None Lives: with Family Current Problem List Problem List Problems Medical Problems: (1) Accelerated hypertension Status: Acute (2) Acute kidney failure Status: Acute (3) Chronic anemia Status: Acute Current Medications Current Medications Current Medications Fentanyl Citrate (Fentanyl 2ml Vial) 50 mcg PRN Q15MIN PRN IV PAIN GREATER THAN 3/10 Last administered on 06/29/17 18:04; Start 06/29/17 at 14:30; Stop 06/30/17 at 14:29 Hydralazine HCl (Apresoline Inj) 10 mg 1X ONCE IVP Last administered on 14:48; Start 06/29/17 at 14:30; Stop 06/29/17 at 14:31; Status DC Aspirin (Edgard Aspirin) 325 mg 1X ONCE PO Last administered on 06/29/17 14:46 ; Start 06/29/17 at 14:30; Stop 06/29/17 at 14:31; Status DC Furosemide (Lasix) 40 mg 1X ONCE IVP Last administered on 06/29/17 14:45; Start 06/29/17 at 14:30; Stop 06/29/17 at 14:31; Status DC Ondansetron HCl (Zofran) 4 mg PRN Q8HRS PRN IV NAUSEA/VOMITING Last administered on 06/30/17 09:18; Start 06/29/17 at 14:45; Stop 06/30/17 at 14: 44 Fentanyl Citrate (Fentanyl 2ml Vial) 50 mcg PRN Q2HR PRN IV PAIN Last administered on 06/30/17 03:32; Start 06/29/17 at 14:45; Stop 06/30/17 at 14: 44 Acetaminophen (Tylenol) 650 mg PRN Q4HRS PRN PO FEVER; Start 06/29/17 at 14:45 ; Stop 06/30/17 at 14:44 Hydralazine HCl (Apresoline Inj) 10 mg PRN Q4HRS PRN IVP ELEVATED BP, SEE COMMENTS Last administered on 06/30/17 09:15; Start 06/29/17 at 16:00 Calcium Carbonate/ Glycine (Tums) 500 mg 1X ONCE PO ; Start 06/29/17 at 17:00; Stop 06/29/17 at 17:01; Status Cancel Amlodipine Besylate (Norvasc) 5 mg DAILY PO Last administered on 06/30/17 09: 09; Start 06/30/17 at 09:00 Folic Acid (Folic Acid) 1 mg DAILY PO Last administered on 06/30/17 09:08; Start 06/30/17 at 09:00 Furosemide (Lasix) 40 mg DAILY PO Last administered on 06/30/17 09:09; Start 06/30/17 at 09:00 Acetaminophen/ Hydrocodone Bitart (Lortab 10/325) 1 tab PRN Q6HRS PRN PO PAIN Last administered on 06/30/17 05:30; Start 06/29/17 at 18:15 Metoprolol Tartrate (Lopressor) 50 mg BID PO Last administered on 06/29/17 20: 29; Start 06/29/17 at 21:00; Stop 06/30/17 at 07:52; Status DC Montelukast Sodium (Singulair) 10 mg HS PO Last administered on 06/29/17 20:29 ; Start 06/29/17 at 21:00 Sodium Bicarbonate (Sodium Bicarbonate) 1,300 mg TID PO Last administered on 09:08; Start 06/29/17 at 21:00 Doxazosin Mesylate (Cardura) 2 mg DAILY PO ; Start 06/30/17 at 09:00; Stop 07/07 at 09:00; Status DC Febuxostat (Uloric) 80 mg DAILY PO Last administered on 06/30/17 09:08; Start 06/30/17 at 09:00 Potassium Chloride (Klor-Con) 20 meq DAILYWBKFT PO Last administered on 09:09; Start 06/30/17 at 08:00 Doxazosin Mesylate (Cardura) 2 mg HS PO ; Start 06/30/17 at 21:00 Metoprolol Tartrate (Lopressor) 100 mg BID PO Last administered on 06/30/17 09:09; Start 06/30/17 at 09:00 Colchicine (Colcrys) 0.6 mg DAILY PO Last administered on 06/30/17 09:08; Start 06/30/17 at 09:00 Active Scripts Active Hydrocodone-Apap 10325 (Hydrocodone Bit/Acetaminophen) 1 Each Tablet 1 Tab PO PRN Q6HRS PRN Metoprolol Tartrate 50 Mg Tablet 50 Mg PO BID Reported Uloric (Febuxostat) 80 Mg Tablet 80 Mg PO DAILY Potassium Chloride 20 Meq Tablet.er 20 Meq PO DAILY Furosemide 40 Mg Tablet 40 Mg PO DAILY Sodium Bicarbonate 650 Mg Tablet 2 Tab PO TID Montelukast Sodium Tablet (Montelukast Sodium) 10 Mg Tablet 10 Mg PO HS Cardura (Doxazosin Mesylate) 2 Mg Tablet 2 Mg PO DAILY Amlodipine Besylate 5 Mg Tablet 5 Mg PO DAILY Folic Acid 1 Mg Tablet 1 Mg PO DAILY Allergies Allergies: Coded Allergies: morphine (Verified Allergy, Severe, Anaphylaxis, takes lortab at home, ) tolerates hydromorphone and hydrocodone ROS General: YES: Fatigue PSYCHOLOGICAL ROS: YES: Anxiety, Depression Eyes: Yes Decreased vision Respiratory: YES: Cough, Orthopnea Gastrointestinal: Yes Constipation Genitourinary: YES Other (ANURIA) Musculoskeletal: Yes Joint Stiffness Neurological: Yes Weakness Skin: Yes Dry Skin Physical Exam General: Alert, Cooperative, No acute distress HEENT: PERRLA Lungs: Clear to auscultation Heart: Regular rate, Normal S1, Normal S2 Abdomen: Normal bowel sounds, Soft, No tenderness Extremities: Other (LEFT LE EDEMA, MILD TENDERNESS OVER CALF) Skin: No rashes, No breakdown Neuro: Normal speech, Cranial nerves 3-12 NL Psych/Mental Status: Mental status NL, Mood NL MUSCULOSKELETAL: No joint tenderness, No deformity Vitals VITALS Vital Signs Date Time Temp Pulse Resp B/P (MAP) Pulse Ox O2 Delivery O2 Flow Rate FiO2 06/30/17 11:00 97.5 66 20 161/98 (119) 97 Nasal Cannula 2.0 97.5 Labs Labs Laboratory Tests Test 06/29/17 13:08 06/29/17 20:45 06/30/17 02:35 White Blood Count 13.8 x10^3/uL (4.0-11.0) 13.2 x10^3/uL (4.0-11.0) Red Blood Count 1.83 x10^6/uL (4.30-5.70) 1.93 x10^6/uL (4.30-5.70) Hemoglobin 6.1 g/dL (13.0-17.5) 6.4 g/dL (13.0-17.5) Hematocrit 17.3 % (39.0-53.0) 18.7 % (39.0-53.0) Mean Corpuscular Volume 95 fL (79-100) 97 fL (79-100) Mean Corpuscular Hemoglobin 34 pg (25-35) 33 pg (25-35) Mean Corpuscular Hemoglobin Concent 36 g/dL (31-37) 34 g/dL (31-37) Red Cell Distribution Width 24.8 % (11.5-14.5) 25.4 % (11.5-14.5) Platelet Count 203 x10^3/uL (140-400) 190 x10^3/uL (140-400) Neutrophils (%) (Auto) 40 % (31-73) 33 % (31-73) Lymphocytes (%) (Auto) 44 % (24-48) 52 % (24-48) Monocytes (%) (Auto) 12 % (0-9) 11 % (0-9) Eosinophils (%) (Auto) 3 % (0-3) 3 % (0-3) Basophils (%) (Auto) 2 % (0-3) 1 % (0-3) Neutrophils # (Auto) 5.5 x10^3uL (1.8-7.7) 4.3 x10^3uL (1.8-7.7) Lymphocytes # (Auto) 6.1 x10^3/uL (1.0-4.8) 6.9 x10^3/uL (1.0-4.8) Monocytes # (Auto) 1.6 x10^3/uL (0.0-1.1) 1.5 x10^3/uL (0.0-1.1) Eosinophils # (Auto) 0.4 x10^3/uL (0.0-0.7) 0.4 x10^3/uL (0.0-0.7) Basophils # (Auto) 0.3 x10^3/uL (0.0-0.2) 0.2 x10^3/uL (0.0-0.2) Segmented Neutrophils % 50 % (35-66) Band Neutrophils % 2 % (0-9) Lymphocytes % 39 % (24-48) Monocytes % 7 % (0-10) Eosinophils % 1 % (0-5) Basophils % 1 % (0-3) Nucleated Red Blood Cells 5 Platelet Estimate Adequate (ADEQUATE) Polychromasia Mod Anisocytosis Mod Sickle Cells Mod Target Cells Mod Schistocytes Few Reticulocyte Count (auto) 8.3 % (0.5-2.5) Prothrombin Time 13.0 SEC (11.7-14.0) Prothromb Time International Ratio 1.0 (0.8-1.1) Activated Partial Thromboplast Time 30 SEC (24-38) Sodium Level 142 mmol/L (136-145) 143 mmol/L (136-145) Potassium Level 3.8 mmol/L (3.5-5.1) 3.9 mmol/L (3.5-5.1) Chloride Level 102 mmol/L (98-107) 104 mmol/L (98-107) Carbon Dioxide Level 37 mmol/L (21-32) 32 mmol/L (21-32) Anion Gap 3 (6-14) 7 (6-14) Blood Urea Nitrogen 26 mg/dL (8-26) 28 mg/dL (8-26) Creatinine 2.2 mg/dL (0.7-1.3) 2.3 mg/dL (0.7-1.3) Estimated GFR (Cockcroft-Gault) 39.2 37.2 BUN/Creatinine Ratio 12 (6-20) Glucose Level 84 mg/dL (70-99) 115 mg/dL (70-99) Calcium Level 7.9 mg/dL (8.5-10.1) 8.1 mg/dL (8.5-10.1) Total Bilirubin 2.0 mg/dL (0.2-1.0) Aspartate Amino Transf (AST/SGOT) 65 U/L (15-37) Alanine Aminotransferase (ALT/SGPT) 21 U/L (16-63) Alkaline Phosphatase 174 U/L (46-116) Troponin I Quantitative < 0.017 ng/mL (0.000-0.055) < 0.017 ng/mL (0.000-0.055) < 0.017 ng/mL (0.000-0.055) LV-Uzz-H-Type Natriuretic Peptide 2405 pg/mL (0-124) Total Protein 6.7 g/dL (6.4-8.2) Albumin 2.4 g/dL (3.4-5.0) Albumin/Globulin Ratio 0.6 (1.0-1.7) Uric Acid 9.0 mg/dL (3.5-7.2) Laboratory Tests Test 06/29/17 13:08 06/29/17 20:45 06/30/17 02:35 White Blood Count 13.8 x10^3/uL (4.0-11.0) 13.2 x10^3/uL (4.0-11.0) Red Blood Count 1.83 x10^6/uL (4.30-5.70) 1.93 x10^6/uL (4.30-5.70) Hemoglobin 6.1 g/dL (13.0-17.5) 6.4 g/dL (13.0-17.5) Hematocrit 17.3 % (39.0-53.0) 18.7 % (39.0-53.0) Mean Corpuscular Volume 95 fL (79-100) 97 fL (79-100) Mean Corpuscular Hemoglobin 34 pg (25-35) 33 pg (25-35) Mean Corpuscular Hemoglobin Concent 36 g/dL (31-37) 34 g/dL (31-37) Red Cell Distribution Width 24.8 % (11.5-14.5) 25.4 % (11.5-14.5) Platelet Count 203 x10^3/uL (140-400) 190 x10^3/uL (140-400) Neutrophils (%) (Auto) 40 % (31-73) 33 % (31-73) Lymphocytes (%) (Auto) 44 % (24-48) 52 % (24-48) Monocytes (%) (Auto) 12 % (0-9) 11 % (0-9) Eosinophils (%) (Auto) 3 % (0-3) 3 % (0-3) Basophils (%) (Auto) 2 % (0-3) 1 % (0-3) Neutrophils # (Auto) 5.5 x10^3uL (1.8-7.7) 4.3 x10^3uL (1.8-7.7) Lymphocytes # (Auto) 6.1 x10^3/uL (1.0-4.8) 6.9 x10^3/uL (1.0-4.8) Monocytes # (Auto) 1.6 x10^3/uL (0.0-1.1) 1.5 x10^3/uL (0.0-1.1) Eosinophils # (Auto) 0.4 x10^3/uL (0.0-0.7) 0.4 x10^3/uL (0.0-0.7) Basophils # (Auto) 0.3 x10^3/uL (0.0-0.2) 0.2 x10^3/uL (0.0-0.2) Segmented Neutrophils % 50 % (35-66) Band Neutrophils % 2 % (0-9) Lymphocytes % 39 % (24-48) Monocytes % 7 % (0-10) Eosinophils % 1 % (0-5) Basophils % 1 % (0-3) Nucleated Red Blood Cells 5 Platelet Estimate Adequate (ADEQUATE) Polychromasia Mod Anisocytosis Mod Sickle Cells Mod Target Cells Mod Schistocytes Few Reticulocyte Count (auto) 8.3 % (0.5-2.5) Prothrombin Time 13.0 SEC (11.7-14.0) Prothromb Time International Ratio 1.0 (0.8-1.1) Activated Partial Thromboplast Time 30 SEC (24-38) Sodium Level 142 mmol/L (136-145) 143 mmol/L (136-145) Potassium Level 3.8 mmol/L (3.5-5.1) 3.9 mmol/L (3.5-5.1) Chloride Level 102 mmol/L (98-107) 104 mmol/L (98-107) Carbon Dioxide Level 37 mmol/L (21-32) 32 mmol/L (21-32) Anion Gap 3 (6-14) 7 (6-14) Blood Urea Nitrogen 26 mg/dL (8-26) 28 mg/dL (8-26) Creatinine 2.2 mg/dL (0.7-1.3) 2.3 mg/dL (0.7-1.3) Estimated GFR (Cockcroft-Gault) 39.2 37.2 BUN/Creatinine Ratio 12 (6-20) Glucose Level 84 mg/dL (70-99) 115 mg/dL (70-99) Calcium Level 7.9 mg/dL (8.5-10.1) 8.1 mg/dL (8.5-10.1) Total Bilirubin 2.0 mg/dL (0.2-1.0) Aspartate Amino Transf (AST/SGOT) 65 U/L (15-37) Alanine Aminotransferase (ALT/SGPT) 21 U/L (16-63) Alkaline Phosphatase 174 U/L (46-116) Troponin I Quantitative < 0.017 ng/mL (0.000-0.055) < 0.017 ng/mL (0.000-0.055) < 0.017 ng/mL (0.000-0.055) OM-Gzo-O-Type Natriuretic Peptide 2405 pg/mL (0-124) Total Protein 6.7 g/dL (6.4-8.2) Albumin 2.4 g/dL (3.4-5.0) Albumin/Globulin Ratio 0.6 (1.0-1.7) Uric Acid 9.0 mg/dL (3.5-7.2) Assessment/Plan Assessment/Plan IMP LLE PAIN ? GOUT SICKLE CELL DZ CKD STAGE 3 WITH CR OF ABOUT 2.0 MILD ROXANNE WITH CR OF 2.3-MAY BE NEW BASELINE-HE HAS SKIPPED SEVERAL OP OV'S HTN-LABILE ACUTE ON CHRONIC DIASTOLIC CHF-COMPENSATED PLAN CONT WITH LASIX CONT HOME MEDS INCREASE [facility] CARDIOLOGY ANTHONY RIZO MD Jun 30, 2017 11:25
--- NOTE | 2017-06-30 11:32 | CARD ---
APPROVED REPORT EXAM: Two-dimensional and M-mode echocardiogram with Doppler and color Doppler. Other Information Quality : Excellent INDICATION Murmur 2D DIMENSIONS RVDd4.4 (2.9-3.5cm)Left Atrium(2D)5.1 (1.6-4.0cm) IVSd1.5 (0.7-1.1cm)Aortic Root(2D)3.6 (2.0-3.7cm) LVDd5.7 (3.9-5.9cm)LVOT Diameter2.3 (1.8-2.4cm) PWd1.6 (0.7-1.1cm)LVDs3.5 (2.5-4.0cm) FS (%) 38.5 %SV107.1 ml LVEF(%)65.0 (>50%) Aortic Valve AoV Peak Balwinder.165.2cm/sAoV VTI33.7cm AO Peak GR.10.9mmHgLVOT VTI 24.02cm AO Mean GR.6mmHgAVA (VTI)3.10cm2 Mitral Valve MV E Jxcjrbwh834.2cm/sMV DECEL MMXF114bs MV A Vkrmqcah96.9cm/sE/A Ratio1.4 TDI Lateral E' P. V7.02cm/sMedial E' P. V7.08cm/s E/Lateral E'16.6E/Medial E'16.4 Tricuspid Valve TR P. Aavslcfu073rv/sRAP QHDZNISG5ukLw TR Peak Gr.68ymFrXZIE38slQv Pulmonary Vein S1 Tjhomtjb36.5cm/sS2 Jiiaxmjt66.78cm/s D2 Sqososyt01.8cm/s LEFT VENTRICLE The left ventricle is normal size. There is moderate concentric left ventricular hypertrophy. The lef t ventricular systolic function is normal and the ejection fraction is within normal range. The Eject ion Fraction is 60-65%. There is normal LV segmental wall motion. The left ventricular diastolic func tion and filling is normal for age. RIGHT VENTRICLE The right ventricle is normal size. The right ventricular systolic function is normal. ATRIA The left atrium is moderately dilated. The right atrium is mildly dilated. The interatrial septum is intact with no evidence for an atrial septal defect or patent foramen ovale as noted on 2-D or Dopple r imaging. AORTIC VALVE The aortic valve is normal in structure and function. Doppler and Color Flow revealed trace aortic re gurgitation. There is no significant aortic valvular stenosis. MITRAL VALVE The mitral valve is normal in structure and function. There is no evidence of mitral valve prolapse. There is no mitral valve stenosis. Doppler and Color-flow revealed mild mitral regurgitation. TRICUSPID VALVE The tricuspid valve is normal in structure and function. Doppler and Color Flow revealed trace tricus pid regurgitation.There is mild-moderate pulmonary hypertension.The PA pressure was estimated at 40 m mHg. There is no tricuspid valve stenosis. PULMONIC VALVE The pulmonary valve is normal in structure and function. Doppler and Color Flow revealed trace pulmon ic valvular regurgitation. There is no pulmonic valvular stenosis. GREAT VESSELS The aortic root is normal in size. The ascending aorta is normal in size. The IVC is normal in size a nd collapses >50% with inspiration. PERICARDIAL EFFUSION There is no evidence of significant pericardial effusion. Critical Notification Critical Value: No <Conclusion> The left ventricular systolic function is normal and the ejection fraction is within normal range. Th e Ejection Fraction is 60-65%. There is moderate concentric left ventricular hypertrophy. There is normal LV segmental wall motion. Doppler and Color-flow revealed mild mitral regurgitation. Doppler and Color Flow revealed trace tricuspid regurgitation.There is mild-moderate pulmonary hypert ension.The PA pressure was estimated at 40 mmHg.
[2017-06-30 15:00] VITALS: BP 121/86
[2017-06-30] MEDS: FAMOTIDINE 20 MG TABLET. PO SCH (15:30)
--- NOTE | 2017-06-30 16:28 | PDOC ---
TALON OBANDO AREA DIRECTOR OF HOME HEALTH SALES 06/30/17 1628: CARDIO Progress Notes Date and Time Date of Service 06/30/2017 Time of Evaluation 1610 Subjective Subjective: No Chest Pain, No shortness of breath, No Palpitations, No Dizziness Vitals Vitals Vital Signs Date Time Temp Pulse Resp B/P (MAP) Pulse Ox O2 Delivery O2 Flow Rate FiO2 06/30/17 15:05 97 Room Air 2.0 06/30/17 15:00 97.6 67 22 121/86 (98) 97.6 Weight Weight [ ] Input and Output Intake and Output Intake and Output 07/01/17 07:00 Output Total 2400 ml Balance -2400 ml Output Urine Total 2400 ml Laboratory Labs Laboratory Tests Test 06/29/17 20:45 06/30/17 02:35 Troponin I Quantitative < 0.017 ng/mL (0.000-0.055) < 0.017 ng/mL (0.000-0.055) White Blood Count 13.2 x10^3/uL (4.0-11.0) Red Blood Count 1.93 x10^6/uL (4.30-5.70) Hemoglobin 6.4 g/dL (13.0-17.5) Hematocrit 18.7 % (39.0-53.0) Mean Corpuscular Volume 97 fL (79-100) Mean Corpuscular Hemoglobin 33 pg (25-35) Mean Corpuscular Hemoglobin Concent 34 g/dL (31-37) Red Cell Distribution Width 25.4 % (11.5-14.5) Platelet Count 190 x10^3/uL (140-400) Neutrophils (%) (Auto) 33 % (31-73) Lymphocytes (%) (Auto) 52 % (24-48) Monocytes (%) (Auto) 11 % (0-9) Eosinophils (%) (Auto) 3 % (0-3) Basophils (%) (Auto) 1 % (0-3) Neutrophils # (Auto) 4.3 x10^3uL (1.8-7.7) Lymphocytes # (Auto) 6.9 x10^3/uL (1.0-4.8) Monocytes # (Auto) 1.5 x10^3/uL (0.0-1.1) Eosinophils # (Auto) 0.4 x10^3/uL (0.0-0.7) Basophils # (Auto) 0.2 x10^3/uL (0.0-0.2) Sodium Level 143 mmol/L (136-145) Potassium Level 3.9 mmol/L (3.5-5.1) Chloride Level 104 mmol/L (98-107) Carbon Dioxide Level 32 mmol/L (21-32) Anion Gap 7 (6-14) Blood Urea Nitrogen 28 mg/dL (8-26) Creatinine 2.3 mg/dL (0.7-1.3) Estimated GFR (Cockcroft-Gault) 37.2 Glucose Level 115 mg/dL (70-99) Uric Acid 9.0 mg/dL (3.5-7.2) Calcium Level 8.1 mg/dL (8.5-10.1) Physical Exam HEENT: Neck Supple W Full Motion Chest: Symmetric LUNGS: Clear to Auscultation Heart: S1S2, RRR (SR/SB) Abdomen: Soft N/T Extremities: No Calf Tenderness Neurology: alert, oriented, follow commands Assessment Assessment 1. Acute on chronic diastolic CHF: likely reltaed to high output failure with underlying sickle cell, anemia and ROXANNE. Now compensated 2. ROXANNE: nephrology following 3. Mild MR/moderate pulmonary HTN: TTE with normal EF and wall motion. 4. Sickle cell anemia: hemon on board. Hgb 6.4 5. HTN Recommendations 1. No further cardiac workup. Will follow along peripherally 2. Would continue previous metoprolol dose and will increase norvasc instead due to SB. KAR GASTON MD 06/30/17 1702: CARDIO Progress Notes Plan Plan Patient seen and examined. Agree with above [employer] note. Lower extremity edema is improved. Echocardiogram does not demonstrate any significant pulmonary hypertension to account for the degree of lower extremity edema. Normal LV function. Supportive care from a cardiac standpoint. Overall, pt. is improving. TALON OBANDO APRN Jun 30, 2017 16:28 KAR GASTON MD Jun 30, 2017 17:02
[2017-06-30 19:45] VITALS: BP 158/106
[2017-06-30] MEDS: DOXAZOSIN MESYLATE 1 MG TABLET. PO SCH (21:09)
[2017-06-30] MEDS: METOPROLOL TART IMMED RELEASE 50 MG TABLET. PO SCH (21:09)
[2017-06-30] MEDS: MONTELUKAST SODIUM 10 MG TABLET. PO SCH (21:09)
--- NOTE | 2017-06-30 21:54 | CONS ---
DATE OF CONSULTATION: 06/30/2017 REQUESTING PHYSICIAN: Gloria Toro MD REASON FOR CONSULTATION: Sickle cell anemia. HISTORY OF PRESENTING ILLNESS: The patient is a 47-year-old gentleman who has a long history of sickle cell disease and he was admitted to [facility] in 09/2016 for sickle cell crisis. He has had infrequent sickle cell crisis and has not required hydroxyurea. He was admitted to [facility] on 06/29/2017 with right leg pain. He underwent venous Doppler that was negative. He was also evaluated by Cardiology and echocardiogram did not reveal any evidence of pulmonary hypertension. He denies nosebleeds or gum bleeding. No hematemesis, melena, hematochezia. No hemoptysis or hematuria. His hemoglobin has been stable at around 6.5. His usual baseline hemoglobin is usually between 5 and 6. PAST MEDICAL HISTORY: Sickle cell anemia, pancreatitis, cholelithiasis, chronic kidney disease, gout. FAMILY HISTORY: Both parents have sickle cell trait. He had a sister who in her teens from sickle cell disease complications. SOCIAL HISTORY: He has a history of smoking cigarettes occasionally. REVIEW OF SYSTEMS: A 12-point review of system was performed. Pertinent positives are mentioned in the history of presenting illness. Rest of the system review is negative. PHYSICAL EXAMINATION: GENERAL APPEARANCE: The patient is a 47-year-old gentleman who is in no acute cardiorespiratory distress. VITAL SIGNS: Blood pressure 121/86, temperature 97.6. HEENT: Head atraumatic, normocephalic. Eyes: No icterus. NECK: Supple. CHEST: Bilaterally symmetrical. HEART: S1, S2 normal. ABDOMEN: Soft, nontender. CENTRAL NERVOUS SYSTEM: No focal neurological deficits. Skin - no rashes Lymphatics - no lymphadenopathy Musculoskeletal - no joint effusions LABORATORY DATA: WBC 13.2, hemoglobin 6.4, platelet count 190, reticulocyte count 8.3. IMPRESSION AND PLAN: 1. Sickle cell anemia with increasing pain in the right lower extremity, could be from sickle cell crisis. However, his hemoglobin is stable at 6.4 and reticulocyte count is 8.3. I would continue supportive care and pain management and folic acid supplementation. 2. Congestive heart failure. Appreciate Cardiology consultation. Echocardiogram does not reveal any evidence of significant pulmonary hypertension. LUZ MARIA HANNA MD DR: Cristi JOB#: [id number] / [id number] GLORIA Sandoval MD [facility]
[2017-06-30 23:40] VITALS: BP 155/103
[2017-07-01 03:30] VITALS: BP 177/107
[2017-07-01 05:02] LABS: BASO # 0.1 x10^3/uL (0.0-0.2); BASO % 1 % (0-3); EOS % 2 % (0-3); LYMPH # 5.3 x10^3/uL (1.0-4.8); LYMPH % 42 % (24-48); MEAN CORPUSCULAR HEMOGLOBIN 34 pg (25-35); MEAN CORPUSCULAR HGB CONC 35 g/dL (31-37); MEAN CORPUSCULAR VOLUME 97 fL (79-100); MONO % 11 % (0-9); NEUT % 43 % (31-73); PLATELET COUNT 166 x10^3/uL (140-400); RED BLOOD COUNT 1.86 x10^6/uL (4.30-5.70); RED CELL DISTRIBUTION WIDTH 25.3 % (11.5-14.5); WHITE BLOOD COUNT 12.5 x10^3/uL (4.0-11.0)
[2017-07-01 05:05] LABS: HEMATOCRIT 18.1 % (39.0-53.0); HEMOGLOBIN 6.3 g/dL (13.0-17.5)
[2017-07-01 05:37] LABS: ALBUMIN 2.5 g/dL (3.4-5.0); ALBUMIN/GLOBULIN RATIO 0.6 (1.0-1.7); CALCIUM 8.7 mg/dL (8.5-10.1); CREATININE 2.6 mg/dL (0.7-1.3); GFR 32.3; POTASSIUM 4.6 mmol/L (3.5-5.1); TOTAL BILIRUBIN 2.1 mg/dL (0.2-1.0); TOTAL PROTEIN 6.8 g/dL (6.4-8.2)
[2017-07-01 07:00] VITALS: BP 163/95
[2017-07-01] MEDS: POTASSIUM CHLORIDE 20 MEQ TABLET.ER. PO SCH (08:00)
--- NOTE | 2017-07-01 08:05 | PDOC ---
[facility] B[facility] EKG TECHNICIAN 07/01/17 0805: IM PROGRESS NOTES- Subjective Subjective L knee pain improved, no dyspnea Objective Objective alert no distress Vitals Vital Signs Date Time Temp Pulse Resp B/P (MAP) Pulse Ox O2 Delivery O2 Flow Rate FiO2 07/01/17 03:30 98.3 73 18 177/107 (130) 93 Room Air 98.3 06/30/17 15:05 2.0 Input & Output Intake and Output 07/02/17 07:00 Output Total 600 ml Balance -600 ml Output Urine Total 600 ml Physical Exam Physical Exam Physical Exam: General appearance - alert, ill appearing, and in no distress Mental Status - alert, oriented to person, place, and time, affect appropriate to mood Head - normal Chest - clear to auscultation, no wheezes, rales or rhonchi, symmetric air entry Heart - S1 and S2 normal Abdomen - soft, nontender, nondistended, BS + Musculoskeletal - mild swelling medial L calf and tender post knee. swelling subsided anterior knee Extremities - no pedal edema Skin - warm and dry Labs Laboratory Tests Test 06/29/17 13:08 06/29/17 20:45 06/30/17 02:35 07/01/17 04:26 White Blood Count 13.8 x10^3/uL (4.0-11.0) 13.2 x10^3/uL (4.0-11.0) 12.5 x10^3/uL (4.0-11.0) Red Blood Count 1.83 x10^6/uL (4.30-5.70) 1.93 x10^6/uL (4.30-5.70) 1.86 x10^6/uL (4.30-5.70) Hemoglobin 6.1 g/dL (13.0-17.5) 6.4 g/dL (13.0-17.5) 6.3 g/dL (13.0-17.5) Hematocrit 17.3 % (39.0-53.0) 18.7 % (39.0-53.0) 18.1 % (39.0-53.0) Mean Corpuscular Volume 95 fL (79-100) 97 fL (79-100) 97 fL (79-100) Mean Corpuscular Hemoglobin 34 pg (25-35) 33 pg (25-35) 34 pg (25-35) Mean Corpuscular Hemoglobin Concent 36 g/dL (31-37) 34 g/dL (31-37) 35 g/dL (31-37) Red Cell Distribution Width 24.8 % (11.5-14.5) 25.4 % (11.5-14.5) 25.3 % (11.5-14.5) Platelet Count 203 x10^3/uL (140-400) 190 x10^3/uL (140-400) 166 x10^3/uL (140-400) Neutrophils (%) (Auto) 40 % (31-73) 33 % (31-73) 43 % (31-73) Lymphocytes (%) (Auto) 44 % (24-48) 52 % (24-48) 42 % (24-48) Monocytes (%) (Auto) 12 % (0-9) 11 % (0-9) 11 % (0-9) Eosinophils (%) (Auto) 3 % (0-3) 3 % (0-3) 2 % (0-3) Basophils (%) (Auto) 2 % (0-3) 1 % (0-3) 1 % (0-3) Neutrophils # (Auto) 5.5 x10^3uL (1.8-7.7) 4.3 x10^3uL (1.8-7.7) 5.4 x10^3uL (1.8-7.7) Lymphocytes # (Auto) 6.1 x10^3/uL (1.0-4.8) 6.9 x10^3/uL (1.0-4.8) 5.3 x10^3/uL (1.0-4.8) Monocytes # (Auto) 1.6 x10^3/uL (0.0-1.1) 1.5 x10^3/uL (0.0-1.1) 1.4 x10^3/uL (0.0-1.1) Eosinophils # (Auto) 0.4 x10^3/uL (0.0-0.7) 0.4 x10^3/uL (0.0-0.7) 0.3 x10^3/uL (0.0-0.7) Basophils # (Auto) 0.3 x10^3/uL (0.0-0.2) 0.2 x10^3/uL (0.0-0.2) 0.1 x10^3/uL (0.0-0.2) Segmented Neutrophils % 50 % (35-66) Band Neutrophils % 2 % (0-9) Lymphocytes % 39 % (24-48) Monocytes % 7 % (0-10) Eosinophils % 1 % (0-5) Basophils % 1 % (0-3) Nucleated Red Blood Cells 5 Platelet Estimate Adequate (ADEQUATE) Polychromasia Mod Anisocytosis Mod Sickle Cells Mod Target Cells Mod Schistocytes Few Reticulocyte Count (auto) 8.3 % (0.5-2.5) Prothrombin Time 13.0 SEC (11.7-14.0) Prothromb Time International Ratio 1.0 (0.8-1.1) Activated Partial Thromboplast Time 30 SEC (24-38) Sodium Level 142 mmol/L (136-145) 143 mmol/L (136-145) 140 mmol/L (136-145) Potassium Level 3.8 mmol/L (3.5-5.1) 3.9 mmol/L (3.5-5.1) 4.6 mmol/L (3.5-5.1) Chloride Level 102 mmol/L (98-107) 104 mmol/L (98-107) 105 mmol/L (98-107) Carbon Dioxide Level 37 mmol/L (21-32) 32 mmol/L (21-32) 26 mmol/L (21-32) Anion Gap 3 (6-14) 7 (6-14) 9 (6-14) Blood Urea Nitrogen 26 mg/dL (8-26) 28 mg/dL (8-26) 32 mg/dL (8-26) Creatinine 2.2 mg/dL (0.7-1.3) 2.3 mg/dL (0.7-1.3) 2.6 mg/dL (0.7-1.3) Estimated GFR (Cockcroft-Gault) 39.2 37.2 32.3 BUN/Creatinine Ratio 12 (6-20) 12 (6-20) Glucose Level 84 mg/dL (70-99) 115 mg/dL (70-99) 94 mg/dL (70-99) Calcium Level 7.9 mg/dL (8.5-10.1) 8.1 mg/dL (8.5-10.1) 8.7 mg/dL (8.5-10.1) Total Bilirubin 2.0 mg/dL (0.2-1.0) 2.1 mg/dL (0.2-1.0) Aspartate Amino Transf (AST/SGOT) 65 U/L (15-37) 51 U/L (15-37) Alanine Aminotransferase (ALT/SGPT) 21 U/L (16-63) 25 U/L (16-63) Alkaline Phosphatase 174 U/L (46-116) 183 U/L (46-116) Troponin I Quantitative < 0.017 ng/mL (0.000-0.055) < 0.017 ng/mL (0.000-0.055) < 0.017 ng/mL (0.000-0.055) JD-Fvp-R-Type Natriuretic Peptide 2405 pg/mL (0-124) Total Protein 6.7 g/dL (6.4-8.2) 6.8 g/dL (6.4-8.2) Albumin 2.4 g/dL (3.4-5.0) 2.5 g/dL (3.4-5.0) Albumin/Globulin Ratio 0.6 (1.0-1.7) 0.6 (1.0-1.7) Uric Acid 9.0 mg/dL (3.5-7.2) Laboratory Tests Test 07/01/17 04:26 White Blood Count 12.5 x10^3/uL (4.0-11.0) Red Blood Count 1.86 x10^6/uL (4.30-5.70) Hemoglobin 6.3 g/dL (13.0-17.5) Hematocrit 18.1 % (39.0-53.0) Mean Corpuscular Volume 97 fL (79-100) Mean Corpuscular Hemoglobin 34 pg (25-35) Mean Corpuscular Hemoglobin Concent 35 g/dL (31-37) Red Cell Distribution Width 25.3 % (11.5-14.5) Platelet Count 166 x10^3/uL (140-400) Neutrophils (%) (Auto) 43 % (31-73) Lymphocytes (%) (Auto) 42 % (24-48) Monocytes (%) (Auto) 11 % (0-9) Eosinophils (%) (Auto) 2 % (0-3) Basophils (%) (Auto) 1 % (0-3) Neutrophils # (Auto) 5.4 x10^3uL (1.8-7.7) Lymphocytes # (Auto) 5.3 x10^3/uL (1.0-4.8) Monocytes # (Auto) 1.4 x10^3/uL (0.0-1.1) Eosinophils # (Auto) 0.3 x10^3/uL (0.0-0.7) Basophils # (Auto) 0.1 x10^3/uL (0.0-0.2) Sodium Level 140 mmol/L (136-145) Potassium Level 4.6 mmol/L (3.5-5.1) Chloride Level 105 mmol/L (98-107) Carbon Dioxide Level 26 mmol/L (21-32) Anion Gap 9 (6-14) Blood Urea Nitrogen 32 mg/dL (8-26) Creatinine 2.6 mg/dL (0.7-1.3) Estimated GFR (Cockcroft-Gault) 32.3 BUN/Creatinine Ratio 12 (6-20) Glucose Level 94 mg/dL (70-99) Calcium Level 8.7 mg/dL (8.5-10.1) Total Bilirubin 2.1 mg/dL (0.2-1.0) Aspartate Amino Transf (AST/SGOT) 51 U/L (15-37) Alanine Aminotransferase (ALT/SGPT) 25 U/L (16-63) Alkaline Phosphatase 183 U/L (46-116) Total Protein 6.8 g/dL (6.4-8.2) Albumin 2.5 g/dL (3.4-5.0) Albumin/Globulin Ratio 0.6 (1.0-1.7) Meds Current Medications Amlodipine Besylate (Norvasc) 5 mg DAILY PO Last administered on 06/30/17t 09: 09; Start 06/30/17 at 09:00; Stop 06/30/17 at 16:31; Status DC Amlodipine Besylate (Norvasc) 10 mg DAILY PO ; Start 07/01/17 at 09:00 Colchicine (Colcrys) 0.6 mg DAILY PO Last administered on 06/30/17 09:08; Start 06/30/17 at 09:00 Doxazosin Mesylate (Cardura) 2 mg DAILY PO ; Start 06/30/17 at 09:00; Stop 07/07 at 09:00; Status DC Doxazosin Mesylate (Cardura) 2 mg HS PO Last administered on 06/30/17 21:09; Start 06/30/17 at 21:00 Famotidine (Pepcid) 20 mg DAILY PO Last administered on 06/30/17 15:30; Start 06/30/17 at 15:30 Febuxostat (Uloric) 80 mg DAILY PO Last administered on 06/30/17 09:08; Start 06/30/17 at 09:00 Folic Acid (Folic Acid) 1 mg DAILY PO Last administered on 06/30/17 09:08; Start 06/30/17 at 09:00 Furosemide (Lasix) 40 mg DAILY PO Last administered on 06/30/17 09:09; Start 06/30/17 at 09:00 Metoprolol Tartrate (Lopressor) 50 mg BID PO Last administered on 06/30/17 21 :09; Start 06/30/17 at 21:00 Metoprolol Tartrate (Lopressor) 100 mg BID PO Last administered on 06/30/17 09:09; Start 06/30/17 at 09:00; Stop 06/30/17 at 16:31; Status DC Potassium Chloride (Klor-Con) 20 meq DAILYWBKFT PO Last administered on 09:09; Start 06/30/17 at 08:00 Assessment Assessment IMPRESSION: 1. a/c CHF diastolic with normal EF 60-65% LVH 2. malignant HTN 3, Acute on chronic L knee pain with swelling acute gout flare 4. anemia SS chronic baseline Hgb 5.0-6.0 5. Sickle cell crisis with elevated retic count 8.3 on admission 6. CKD III baseline Cr 1.8-2.1 7. probable pulmonary HTN with PA pressure 40 06/2017 ECHO 8. valvular insufficiency mild MR tr TR ECHO 06/2017 9. Swelling medial calf noted on Venous US LLE 10.moderate chronic PCL malnutrition 11. abnormal LFTs with h/o chronic pancreatitis/cholelithiasis asymptomatic on admission 12. hypoxia chronic secondary to chronic anemia not acute respiratory failure 13. hypertensive heart disease with LVH diastolic HF PLAN 07/01/17 hypertensive urgency - metoprolol decreased to 50mg bid - norvasc increased to 10mg daily (only 5mg given 06/30) - hydralazine 10mg IV x one 06/30 - SBP >160 DBP >100 through night. Begin Norvasc and parameters for hyralazine written. D/W staff. ECHO hypertensive heart disease with LVH - BP this morning 163/95 not controlled ROXANNE - BUN 32 Cr 2.6 remains on Lasix 40mg daily - hold today if ok with nephrology - re eval in AM acute gout flare - not taking colcrys at home - only taking uloric - advised to continue both meds on discharge LLE pain/swelling - improved - sono medial L calf/popliteal negative. anemia - Hgb 6.3 continue to monitor CHF - Ad 156.3# today 151.31# hold lasix if okay with nephrology SSC - continue current POC Appreciate consultants assistance. 06/30/17 CHF -cardiology consult - ECHO pending - CXR mild pulmonary edema - Sep baseline BNP 300s - admit BNP 2405 - Lasix 40mg IV ED - chronic Lasix 40mg po daily -DC weight Sep 162# admit 156.38# LLE pain/swelling - h/o gout flare -check uric acid - continue uloric and restart colcrys 0.6mg daily - swelling improved - L medial calf soft tissue swelling noted = doppler tissue swell and post knee pending SSC - consult hematology -retic count 8.3 with admit WBC 13.8 today 13.2 - no sepsis anemia - Admit Hgb 6.2 today 6.1 monitor - transfuse less than 5.0 or symptomatic malignant HTN - Amlodipine 5mg daily, cardura 2mg at hs, increase metoprolol tart to 100mg daily and monitor for HR <55, hydralazine prn CKD III with worsening renal function - consult nephrology - Admit BUN 26 today 28 - Cr 2.2 today 2.3 elevated LFTS Admit T bili 2.0 AST 65 ALT 21 AP 174 monitor DVT/GI prophylaxis - OOB and ambulation Pepcid For more details regarding further plans, please refer to the orders. Plan Plan For more details regarding further plans, please refer to the orders. TAWANDA SALAS MD 07/01/17 0829: IM PROGRESS NOTES- Assessment Assessment Slowly improving.BP high.Echo d/w patient. The patient was seen and examined by me. Chart reviewed and plan of care formulated. Discussed with, reviewed and agree with [facility] [employer] [employer]'s notes, plan of care and orders with modifications as necessary. For more details regarding further plans, please refer to the orders. AGUILA CHAVEZ APRN Jul 01, 2017 08:05 TAWANDA SALAS MD Jul 01, 2017 08:29
--- NOTE | 2017-07-01 08:06 | DISCH ---
DISCHARGE INSTRUCTIONS Condition on Discharge Condition on Discharge: Stable Activity After Discharge Activity Instructions for Disc: Activity as tolerated Diet after Discharge Diet after Discharge: Cardiac (renal non dialysis ) Contacting the after DC Call your doctor for: Concerns you may have Follow-Up Follow up with: Dr. Cortez Davis Thursday next week AGUILA CHAVEZ APRN Jul 01, 2017 08:06
[2017-07-01] MEDS ORDERED: COLC0.6T34 PO (08:07)
[2017-07-01] MEDS: amLODIPine BESYLATE 10 MG TABLET PO SCH (08:10)
[2017-07-01] MEDS: METOPROLOL TART IMMED RELEASE 50 MG TABLET. PO SCH ×2 (08:10→21:29)
[2017-07-01] MEDS: FUROSEMIDE 40 MG TABLET. PO SCH (09:00)
--- NOTE | 2017-07-01 09:31 | PDOC ---
PROGRESS NOTES Subjective Subjective HPI - Sickle cell anemia with increasing pain in the right lower extremity, could be from sickle cell crisis. ROS - leg pain improving Objective Objective Vital Signs Date Time Temp Pulse Resp B/P (MAP) Pulse Ox O2 Delivery O2 Flow Rate FiO2 07/01/17 08:10 84 163/95 07/01/17 07:00 98.5 19 94 Room Air 98.5 06/30/17 15:05 2.0 Intake and Output 07/02/17 07:00 Output Total 600 ml Balance -600 ml Output Urine Total 600 ml Physical Exam Heart: Normal S1, Normal S2 General: Alert, Oriented X3, No acute distress Lungs: Clear to auscultation Neuro: Normal speech Psych/Mental Status: Mental status NL Assessment Assessment Problems Medical Problems: (1) Accelerated hypertension Status: Acute (2) Acute kidney failure Status: Acute (3) Chronic anemia Status: Acute IMPRESSION AND PLAN: 1. Sickle cell anemia with increasing pain in the right lower extremity, could be from sickle cell crisis. However, his hemoglobin is stable at 6.3 and reticulocyte count is 8.3. I would continue supportive care and pain management and folic acid supplementation. Transfuse for Hb <5.0 or if symptomatic. 2. Congestive heart failure. Appreciate Cardiology consultation. Echocardiogram does not reveal any evidence of significant pulmonary hypertension. Comment Review of Relevant I have reviewed the following items katey (where applicable) has been applied. Labs Laboratory Tests Test 06/29/17 13:08 06/29/17 20:45 06/30/17 02:35 07/01/17 04:26 White Blood Count 13.8 x10^3/uL (4.0-11.0) 13.2 x10^3/uL (4.0-11.0) 12.5 x10^3/uL (4.0-11.0) Red Blood Count 1.83 x10^6/uL (4.30-5.70) 1.93 x10^6/uL (4.30-5.70) 1.86 x10^6/uL (4.30-5.70) Hemoglobin 6.1 g/dL (13.0-17.5) 6.4 g/dL (13.0-17.5) 6.3 g/dL (13.0-17.5) Hematocrit 17.3 % (39.0-53.0) 18.7 % (39.0-53.0) 18.1 % (39.0-53.0) Mean Corpuscular Volume 95 fL (79-100) 97 fL (79-100) 97 fL (79-100) Mean Corpuscular Hemoglobin 34 pg (25-35) 33 pg (25-35) 34 pg (25-35) Mean Corpuscular Hemoglobin Concent 36 g/dL (31-37) 34 g/dL (31-37) 35 g/dL (31-37) Red Cell Distribution Width 24.8 % (11.5-14.5) 25.4 % (11.5-14.5) 25.3 % (11.5-14.5) Platelet Count 203 x10^3/uL (140-400) 190 x10^3/uL (140-400) 166 x10^3/uL (140-400) Neutrophils (%) (Auto) 40 % (31-73) 33 % (31-73) 43 % (31-73) Lymphocytes (%) (Auto) 44 % (24-48) 52 % (24-48) 42 % (24-48) Monocytes (%) (Auto) 12 % (0-9) 11 % (0-9) 11 % (0-9) Eosinophils (%) (Auto) 3 % (0-3) 3 % (0-3) 2 % (0-3) Basophils (%) (Auto) 2 % (0-3) 1 % (0-3) 1 % (0-3) Neutrophils # (Auto) 5.5 x10^3uL (1.8-7.7) 4.3 x10^3uL (1.8-7.7) 5.4 x10^3uL (1.8-7.7) Lymphocytes # (Auto) 6.1 x10^3/uL (1.0-4.8) 6.9 x10^3/uL (1.0-4.8) 5.3 x10^3/uL (1.0-4.8) Monocytes # (Auto) 1.6 x10^3/uL (0.0-1.1) 1.5 x10^3/uL (0.0-1.1) 1.4 x10^3/uL (0.0-1.1) Eosinophils # (Auto) 0.4 x10^3/uL (0.0-0.7) 0.4 x10^3/uL (0.0-0.7) 0.3 x10^3/uL (0.0-0.7) Basophils # (Auto) 0.3 x10^3/uL (0.0-0.2) 0.2 x10^3/uL (0.0-0.2) 0.1 x10^3/uL (0.0-0.2) Segmented Neutrophils % 50 % (35-66) Band Neutrophils % 2 % (0-9) Lymphocytes % 39 % (24-48) Monocytes % 7 % (0-10) Eosinophils % 1 % (0-5) Basophils % 1 % (0-3) Nucleated Red Blood Cells 5 Platelet Estimate Adequate (ADEQUATE) Polychromasia Mod Anisocytosis Mod Sickle Cells Mod Target Cells Mod Schistocytes Few Reticulocyte Count (auto) 8.3 % (0.5-2.5) Prothrombin Time 13.0 SEC (11.7-14.0) Prothromb Time International Ratio 1.0 (0.8-1.1) Activated Partial Thromboplast Time 30 SEC (24-38) Sodium Level 142 mmol/L (136-145) 143 mmol/L (136-145) 140 mmol/L (136-145) Potassium Level 3.8 mmol/L (3.5-5.1) 3.9 mmol/L (3.5-5.1) 4.6 mmol/L (3.5-5.1) Chloride Level 102 mmol/L (98-107) 104 mmol/L (98-107) 105 mmol/L (98-107) Carbon Dioxide Level 37 mmol/L (21-32) 32 mmol/L (21-32) 26 mmol/L (21-32) Anion Gap 3 (6-14) 7 (6-14) 9 (6-14) Blood Urea Nitrogen 26 mg/dL (8-26) 28 mg/dL (8-26) 32 mg/dL (8-26) Creatinine 2.2 mg/dL (0.7-1.3) 2.3 mg/dL (0.7-1.3) 2.6 mg/dL (0.7-1.3) Estimated GFR (Cockcroft-Gault) 39.2 37.2 32.3 BUN/Creatinine Ratio 12 (6-20) 12 (6-20) Glucose Level 84 mg/dL (70-99) 115 mg/dL (70-99) 94 mg/dL (70-99) Calcium Level 7.9 mg/dL (8.5-10.1) 8.1 mg/dL (8.5-10.1) 8.7 mg/dL (8.5-10.1) Total Bilirubin 2.0 mg/dL (0.2-1.0) 2.1 mg/dL (0.2-1.0) Aspartate Amino Transf (AST/SGOT) 65 U/L (15-37) 51 U/L (15-37) Alanine Aminotransferase (ALT/SGPT) 21 U/L (16-63) 25 U/L (16-63) Alkaline Phosphatase 174 U/L (46-116) 183 U/L (46-116) Troponin I Quantitative < 0.017 ng/mL (0.000-0.055) < 0.017 ng/mL (0.000-0.055) < 0.017 ng/mL (0.000-0.055) ZK-Wpj-Q-Type Natriuretic Peptide 2405 pg/mL (0-124) Total Protein 6.7 g/dL (6.4-8.2) 6.8 g/dL (6.4-8.2) Albumin 2.4 g/dL (3.4-5.0) 2.5 g/dL (3.4-5.0) Albumin/Globulin Ratio 0.6 (1.0-1.7) 0.6 (1.0-1.7) Uric Acid 9.0 mg/dL (3.5-7.2) Laboratory Tests Test 07/01/17 04:26 White Blood Count 12.5 x10^3/uL (4.0-11.0) Red Blood Count 1.86 x10^6/uL (4.30-5.70) Hemoglobin 6.3 g/dL (13.0-17.5) Hematocrit 18.1 % (39.0-53.0) Mean Corpuscular Volume 97 fL (79-100) Mean Corpuscular Hemoglobin 34 pg (25-35) Mean Corpuscular Hemoglobin Concent 35 g/dL (31-37) Red Cell Distribution Width 25.3 % (11.5-14.5) Platelet Count 166 x10^3/uL (140-400) Neutrophils (%) (Auto) 43 % (31-73) Lymphocytes (%) (Auto) 42 % (24-48) Monocytes (%) (Auto) 11 % (0-9) Eosinophils (%) (Auto) 2 % (0-3) Basophils (%) (Auto) 1 % (0-3) Neutrophils # (Auto) 5.4 x10^3uL (1.8-7.7) Lymphocytes # (Auto) 5.3 x10^3/uL (1.0-4.8) Monocytes # (Auto) 1.4 x10^3/uL (0.0-1.1) Eosinophils # (Auto) 0.3 x10^3/uL (0.0-0.7) Basophils # (Auto) 0.1 x10^3/uL (0.0-0.2) Sodium Level 140 mmol/L (136-145) Potassium Level 4.6 mmol/L (3.5-5.1) Chloride Level 105 mmol/L (98-107) Carbon Dioxide Level 26 mmol/L (21-32) Anion Gap 9 (6-14) Blood Urea Nitrogen 32 mg/dL (8-26) Creatinine 2.6 mg/dL (0.7-1.3) Estimated GFR (Cockcroft-Gault) 32.3 BUN/Creatinine Ratio 12 (6-20) Glucose Level 94 mg/dL (70-99) Calcium Level 8.7 mg/dL (8.5-10.1) Total Bilirubin 2.1 mg/dL (0.2-1.0) Aspartate Amino Transf (AST/SGOT) 51 U/L (15-37) Alanine Aminotransferase (ALT/SGPT) 25 U/L (16-63) Alkaline Phosphatase 183 U/L (46-116) Total Protein 6.8 g/dL (6.4-8.2) Albumin 2.5 g/dL (3.4-5.0) Albumin/Globulin Ratio 0.6 (1.0-1.7) Medications Current Medications Fentanyl Citrate (Fentanyl 2ml Vial) 50 mcg PRN Q15MIN PRN IV PAIN GREATER THAN 3/10 Last administered on 06/29/17 18:04; Start 06/29/17 at 14:30; Stop 06/30/17 at 14:29; Status DC Hydralazine HCl (Apresoline Inj) 10 mg 1X ONCE IVP Last administered on 14:48; Start 06/29/17 at 14:30; Stop 06/29/17 at 14:31; Status DC Aspirin (Edgard Aspirin) 325 mg 1X ONCE PO Last administered on 06/29/17 14:46 ; Start 06/29/17 at 14:30; Stop 06/29/17 at 14:31; Status DC Furosemide (Lasix) 40 mg 1X ONCE IVP Last administered on 06/29/17 14:45; Start 06/29/17 at 14:30; Stop 06/29/17 at 14:31; Status DC Ondansetron HCl (Zofran) 4 mg PRN Q8HRS PRN IV NAUSEA/VOMITING Last administered on 06/30/17 09:18; Start 06/29/17 at 14:45; Stop 06/30/17 at 14: 44; Status DC Fentanyl Citrate (Fentanyl 2ml Vial) 50 mcg PRN Q2HR PRN IV PAIN Last administered on 06/30/17 03:32; Start 06/29/17 at 14:45; Stop 06/30/17 at 14: 44; Status DC Acetaminophen (Tylenol) 650 mg PRN Q4HRS PRN PO FEVER Last administered on 13:52; Start 06/29/17 at 14:45; Stop 06/30/17 at 14:44; Status DC Hydralazine HCl (Apresoline Inj) 10 mg PRN Q4HRS PRN IVP ELEVATED BP, SEE COMMENTS Last administered on 06/30/17 09:15; Start 06/29/17 at 16:00 Calcium Carbonate/ Glycine (Tums) 500 mg 1X ONCE PO ; Start 06/29/17 at 17:00; Stop 06/29/17 at 17:01; Status Cancel Amlodipine Besylate (Norvasc) 5 mg DAILY PO Last administered on 06/30/17 09: 09; Start 06/30/17 at 09:00; Stop 06/30/17 at 16:31; Status DC Folic Acid (Folic Acid) 1 mg DAILY PO Last administered on 06/30/17 09:08; Start 06/30/17 at 09:00 Furosemide (Lasix) 40 mg DAILY PO Last administered on 06/30/17 09:09; Start 06/30/17 at 09:00 Acetaminophen/ Hydrocodone Bitart (Lortab 10/325) 1 tab PRN Q6HRS PRN PO PAIN Last administered on 06/30/17 21:12; Start 06/29/17 at 18:15 Metoprolol Tartrate (Lopressor) 50 mg BID PO Last administered on 06/29/17 20: 29; Start 06/29/17 at 21:00; Stop 06/30/17 at 07:52; Status DC Montelukast Sodium (Singulair) 10 mg HS PO Last administered on 06/30/17 21: 09; Start 06/29/17 at 21:00 Sodium Bicarbonate (Sodium Bicarbonate) 1,300 mg TID PO Last administered on 21:08; Start 06/29/17 at 21:00 Doxazosin Mesylate (Cardura) 2 mg DAILY PO ; Start 06/30/17 at 09:00; Stop 07/07 at 09:00; Status DC Febuxostat (Uloric) 80 mg DAILY PO Last administered on 06/30/17 09:08; Start 06/30/17 at 09:00 Potassium Chloride (Klor-Con) 20 meq DAILYWBKFT PO Last administered on 09:09; Start 06/30/17 at 08:00 Doxazosin Mesylate (Cardura) 2 mg HS PO Last administered on 06/30/17 21:09; Start 06/30/17 at 21:00 Metoprolol Tartrate (Lopressor) 100 mg BID PO Last administered on 06/30/17 09:09; Start 06/30/17 at 09:00; Stop 06/30/17 at 16:31; Status DC Colchicine (Colcrys) 0.6 mg DAILY PO Last administered on 06/30/17 09:08; Start 06/30/17 at 09:00 Famotidine (Pepcid) 20 mg DAILY PO Last administered on 06/30/17 15:30; Start 06/30/17 at 15:30 Amlodipine Besylate (Norvasc) 10 mg DAILY PO Last administered on 07/01/17 08 :10; Start 07/01/17 at 09:00 Metoprolol Tartrate (Lopressor) 50 mg BID PO Last administered on 07/01/17 08 :10; Start 06/30/17 at 21:00 Active Scripts Active Colcrys (Colchicine) 0.6 Mg Tablet 0.6 Mg PO DAILY Hydrocodone-Apap 10-325 (Hydrocodone Bit/Acetaminophen) 1 Each Tablet 1 Tab PO PRN Q6HRS PRN Metoprolol Tartrate 50 Mg Tablet 50 Mg PO BID Reported Uloric (Febuxostat) 80 Mg Tablet 80 Mg PO DAILY Potassium Chloride 20 Meq Tablet.er 20 Meq PO DAILY Furosemide 40 Mg Tablet 40 Mg PO DAILY Sodium Bicarbonate 650 Mg Tablet 2 Tab PO TID Montelukast Sodium Tablet (Montelukast Sodium) 10 Mg Tablet 10 Mg PO HS Cardura (Doxazosin Mesylate) 2 Mg Tablet 2 Mg PO DAILY Folic Acid 1 Mg Tablet 1 Mg PO DAILY Vitals/I & O Vital Sign - Last 24 Hours 06/30/17 06/30/17 06/30/17 06/30/17 11:00 13:48 15:00 15:05 Temp 97.5 97.6 97.5 97.6 Pulse 66 67 Resp 20 22 B/P (MAP) 161/98 (119) 121/86 (98) Pulse Ox 97 97 94 O2 Delivery Nasal Cannula Room Air Nasal Cannula O2 Flow Rate 2.0 2.0 2.0 2.0 06/30/17 06/30/17 06/30/17 06/30/17 19:45 20:00 21:09 21:09 Temp 98.3 98.3 Pulse 68 68 68 Resp 18 B/P (MAP) 158/106 (123) 158/106 158/106 Pulse Ox 94 O2 Delivery Room Air Room Air 06/30/17 06/30/17 06/30/17 07/01/17 21:12 22:12 23:40 03:30 Temp 98.4 98.3 98.4 98.3 Pulse 72 73 Resp 18 18 B/P (MAP) 155/103 (120) 177/107 (130) Pulse Ox 94 93 93 O2 Delivery Room Air Room Air Room Air Room Air 07/01/17 07/01/17 07/01/17 07:00 08:10 08:10 Temp 98.5 98.5 Pulse 76 83 84 Resp 19 B/P (MAP) 163/95 (117) 163/95 163/95 Pulse Ox 94 O2 Delivery Room Air Intake and Output 07/01/17 07/01/17 07/02/17 15:00 23:00 07:00 Output Total 600 ml Balance -600 ml LUZ MARIA HANNA MD Jul 01, 2017 09:31
[2017-07-01] MEDS: FEBUXOSTAT 40 MG TABLET PO SCH (09:32)
[2017-07-01] MEDS: HYDROcodone/APAP 10/325 1 TAB TABLET PO PRN ×3 (09:32→21:30)
[2017-07-01] MEDS: COLCHICINE 0.6 MG TABLET PO SCH (09:32)
[2017-07-01] MEDS: SODIUM BICARBONATE 650 MG TABLET. PO SCH ×3 (09:33→17:25)
[2017-07-01] MEDS: FAMOTIDINE 20 MG TABLET. PO SCH (09:33)
[2017-07-01] MEDS: FOLIC ACID 1 MG TABLET. PO SCH (09:36)
[2017-07-01 11:00] VITALS: BP 135/87
--- NOTE | 2017-07-01 11:32 | PDOC ---
Renal-Progress Notes Subjective Notes Notes STILL HAVING SOME PAIN History of Present Illness Hx of present illness STABLE Vitals Vitals Vital Signs Date Time Temp Pulse Resp B/P (MAP) Pulse Ox O2 Delivery O2 Flow Rate FiO2 07/01/17 10:32 16 Room Air 07/01/17 08:10 84 163/95 07/01/17 08:00 2.0 07/01/17 07:00 98.5 94 98.5 Weight Weight [ ] I.O. Intake and Output Intake and Output 07/02/17 07:00 Output Total 600 ml Balance -600 ml Output Urine Total 600 ml Labs Labs Laboratory Tests Test 07/01/17 04:26 White Blood Count 12.5 x10^3/uL (4.0-11.0) Red Blood Count 1.86 x10^6/uL (4.30-5.70) Hemoglobin 6.3 g/dL (13.0-17.5) Hematocrit 18.1 % (39.0-53.0) Mean Corpuscular Volume 97 fL (79-100) Mean Corpuscular Hemoglobin 34 pg (25-35) Mean Corpuscular Hemoglobin Concent 35 g/dL (31-37) Red Cell Distribution Width 25.3 % (11.5-14.5) Platelet Count 166 x10^3/uL (140-400) Neutrophils (%) (Auto) 43 % (31-73) Lymphocytes (%) (Auto) 42 % (24-48) Monocytes (%) (Auto) 11 % (0-9) Eosinophils (%) (Auto) 2 % (0-3) Basophils (%) (Auto) 1 % (0-3) Neutrophils # (Auto) 5.4 x10^3uL (1.8-7.7) Lymphocytes # (Auto) 5.3 x10^3/uL (1.0-4.8) Monocytes # (Auto) 1.4 x10^3/uL (0.0-1.1) Eosinophils # (Auto) 0.3 x10^3/uL (0.0-0.7) Basophils # (Auto) 0.1 x10^3/uL (0.0-0.2) Sodium Level 140 mmol/L (136-145) Potassium Level 4.6 mmol/L (3.5-5.1) Chloride Level 105 mmol/L (98-107) Carbon Dioxide Level 26 mmol/L (21-32) Anion Gap 9 (6-14) Blood Urea Nitrogen 32 mg/dL (8-26) Creatinine 2.6 mg/dL (0.7-1.3) Estimated GFR (Cockcroft-Gault) 32.3 BUN/Creatinine Ratio 12 (6-20) Glucose Level 94 mg/dL (70-99) Calcium Level 8.7 mg/dL (8.5-10.1) Total Bilirubin 2.1 mg/dL (0.2-1.0) Aspartate Amino Transf (AST/SGOT) 51 U/L (15-37) Alanine Aminotransferase (ALT/SGPT) 25 U/L (16-63) Alkaline Phosphatase 183 U/L (46-116) Total Protein 6.8 g/dL (6.4-8.2) Albumin 2.5 g/dL (3.4-5.0) Albumin/Globulin Ratio 0.6 (1.0-1.7) Review of Systems Constitutional: yes: weakness, alert, oriented Ears/Nose/Throat: Yes: no symptom reported Eyes: Yes: no symptom reported Pulmonary: Yes no symptom reported Cardiovascular: Yes no symptom reported Gastrointestional: Yes: no symptom reported Genitourinary: Yes: no symptom reported Musculoskeletal: Yes: leg pain Skin: Yes no symptom reported Psychiatric/Neurological: Yes: no symptom reported Physical Exam General Appearance: no apparent distress Respiratory: bilateral CTA Heart: S1S2 Abdomen: soft, bowel sounds present, rectal tube Genitourinary: bladder flat Neurology: alert, oriented, follow commands Musculoskeletal: Other Assessment Assessment IMP CKD STAGE 3 TO 4 SICKLE CELL DZ/CRISIS LEFT LE PAIN PROB DUE TO ABOVE-NO DVT ANEMIA INCREASED LFT'S [id number] PLAN ENC PT TO WEAR O2 START IVF'S LOOK FOR VOLUME OVERLOAD ANTHONY MARKHAM MD Jul 01, 2017 11:32
[2017-07-01] MEDS: IV NORMAL SALINE 1000ML BAG 1,000 ML IV SCH ×2 (12:06→22:00)
[2017-07-01 15:00] VITALS: BP 137/90
[2017-07-01 19:55] VITALS: BP 143/100
[2017-07-01] MEDS: MONTELUKAST SODIUM 10 MG TABLET. PO SCH (21:29)
[2017-07-01] MEDS: DOXAZOSIN MESYLATE 1 MG TABLET. PO SCH (21:30)
[2017-07-01 23:58] VITALS: BP 141/99
[2017-07-02] MEDS ORDERED: ACETAMINOPHEN 325 MG TABLET. PO PRN (00:30)
[2017-07-02 03:55] VITALS: BP 143/105
[2017-07-02 04:55] LABS: BASO # 0.2 x10^3/uL (0.0-0.2); BASO % 2 % (0-3); EOS % 3 % (0-3); LYMPH # 5.3 x10^3/uL (1.0-4.8); LYMPH % 45 % (24-48); MEAN CORPUSCULAR HEMOGLOBIN 34 pg (25-35); MEAN CORPUSCULAR HGB CONC 36 g/dL (31-37); MEAN CORPUSCULAR VOLUME 96 fL (79-100); MONO % 11 % (0-9); NEUT % 39 % (31-73); PLATELET COUNT 156 x10^3/uL (140-400); RED BLOOD COUNT 1.68 x10^6/uL (4.30-5.70); WHITE BLOOD COUNT 11.6 x10^3/uL (4.0-11.0)
[2017-07-02 05:06] LABS: HEMATOCRIT 16.1 % (39.0-53.0); HEMOGLOBIN 5.7 g/dL (13.0-17.5)
[2017-07-02 05:18] LABS: ALBUMIN 2.3 g/dL (3.4-5.0); ALBUMIN/GLOBULIN RATIO 0.6 (1.0-1.7); CALCIUM 7.9 mg/dL (8.5-10.1); CREATININE 2.6 mg/dL (0.7-1.3); GFR 32.3; POTASSIUM 4.3 mmol/L (3.5-5.1); TOTAL BILIRUBIN 1.9 mg/dL (0.2-1.0); TOTAL PROTEIN 6.4 g/dL (6.4-8.2)
[2017-07-02 07:00] VITALS: BP 142/89
--- NOTE | 2017-07-02 08:49 | PDOC ---
IM PROGRESS NOTES- Subjective Subjective Leg pain is better.No dyspnea Objective Objective alert no distress Vitals Vital Signs Date Time Temp Pulse Resp B/P (MAP) Pulse Ox O2 Delivery O2 Flow Rate FiO2 07/02/17 07:00 98.2 84 18 142/89 (106) 92 Room Air 98.2 07/01/17 08:00 2.0 Input & Output Intake and Output 07/03/17 07:00 Output Total 1000 ml Balance -1000 ml Output Urine Total 1000 ml Physical Exam Physical Exam Physical Exam: General appearance - alert and in no distress Mental Status - alert, oriented to person, place, and time, affect appropriate to mood Head - normal Chest - clear to auscultation, no wheezes, rales or rhonchi, symmetric air entry Heart - S1 and S2 normal Abdomen - soft, nontender, nondistended, BS + Musculoskeletal - knee swelling improving Extremities - no pedal edema Skin - warm and dry Labs Laboratory Tests Test 07/01/17 04:26 07/02/17 04:36 White Blood Count 12.5 x10^3/uL (4.0-11.0) 11.6 x10^3/uL (4.0-11.0) Red Blood Count 1.86 x10^6/uL (4.30-5.70) 1.68 x10^6/uL (4.30-5.70) Hemoglobin 6.3 g/dL (13.0-17.5) 5.7 g/dL (13.0-17.5) Hematocrit 18.1 % (39.0-53.0) 16.1 % (39.0-53.0) Mean Corpuscular Volume 97 fL (79-100) 96 fL (79-100) Mean Corpuscular Hemoglobin 34 pg (25-35) 34 pg (25-35) Mean Corpuscular Hemoglobin Concent 35 g/dL (31-37) 36 g/dL (31-37) Red Cell Distribution Width 25.3 % (11.5-14.5) 26.0 % (11.5-14.5) Platelet Count 166 x10^3/uL (140-400) 156 x10^3/uL (140-400) Neutrophils (%) (Auto) 43 % (31-73) 39 % (31-73) Lymphocytes (%) (Auto) 42 % (24-48) 45 % (24-48) Monocytes (%) (Auto) 11 % (0-9) 11 % (0-9) Eosinophils (%) (Auto) 2 % (0-3) 3 % (0-3) Basophils (%) (Auto) 1 % (0-3) 2 % (0-3) Neutrophils # (Auto) 5.4 x10^3uL (1.8-7.7) 4.6 x10^3uL (1.8-7.7) Lymphocytes # (Auto) 5.3 x10^3/uL (1.0-4.8) 5.3 x10^3/uL (1.0-4.8) Monocytes # (Auto) 1.4 x10^3/uL (0.0-1.1) 1.3 x10^3/uL (0.0-1.1) Eosinophils # (Auto) 0.3 x10^3/uL (0.0-0.7) 0.3 x10^3/uL (0.0-0.7) Basophils # (Auto) 0.1 x10^3/uL (0.0-0.2) 0.2 x10^3/uL (0.0-0.2) Sodium Level 140 mmol/L (136-145) 141 mmol/L (136-145) Potassium Level 4.6 mmol/L (3.5-5.1) 4.3 mmol/L (3.5-5.1) Chloride Level 105 mmol/L (98-107) 109 mmol/L (98-107) Carbon Dioxide Level 26 mmol/L (21-32) 23 mmol/L (21-32) Anion Gap 9 (6-14) 9 (6-14) Blood Urea Nitrogen 32 mg/dL (8-26) 38 mg/dL (8-26) Creatinine 2.6 mg/dL (0.7-1.3) 2.6 mg/dL (0.7-1.3) Estimated GFR (Cockcroft-Gault) 32.3 32.3 BUN/Creatinine Ratio 12 (6-20) 15 (6-20) Glucose Level 94 mg/dL (70-99) 83 mg/dL (70-99) Calcium Level 8.7 mg/dL (8.5-10.1) 7.9 mg/dL (8.5-10.1) Total Bilirubin 2.1 mg/dL (0.2-1.0) 1.9 mg/dL (0.2-1.0) Aspartate Amino Transf (AST/SGOT) 51 U/L (15-37) 63 U/L (15-37) Alanine Aminotransferase (ALT/SGPT) 25 U/L (16-63) 37 U/L (16-63) Alkaline Phosphatase 183 U/L (46-116) 180 U/L (46-116) Total Protein 6.8 g/dL (6.4-8.2) 6.4 g/dL (6.4-8.2) Albumin 2.5 g/dL (3.4-5.0) 2.3 g/dL (3.4-5.0) Albumin/Globulin Ratio 0.6 (1.0-1.7) 0.6 (1.0-1.7) Reticulocyte Count (auto) 7.4 % (0.5-2.5) Laboratory Tests Test 07/02/17 04:36 White Blood Count 11.6 x10^3/uL (4.0-11.0) Red Blood Count 1.68 x10^6/uL (4.30-5.70) Hemoglobin 5.7 g/dL (13.0-17.5) Hematocrit 16.1 % (39.0-53.0) Mean Corpuscular Volume 96 fL (79-100) Mean Corpuscular Hemoglobin 34 pg (25-35) Mean Corpuscular Hemoglobin Concent 36 g/dL (31-37) Red Cell Distribution Width 26.0 % (11.5-14.5) Platelet Count 156 x10^3/uL (140-400) Neutrophils (%) (Auto) 39 % (31-73) Lymphocytes (%) (Auto) 45 % (24-48) Monocytes (%) (Auto) 11 % (0-9) Eosinophils (%) (Auto) 3 % (0-3) Basophils (%) (Auto) 2 % (0-3) Neutrophils # (Auto) 4.6 x10^3uL (1.8-7.7) Lymphocytes # (Auto) 5.3 x10^3/uL (1.0-4.8) Monocytes # (Auto) 1.3 x10^3/uL (0.0-1.1) Eosinophils # (Auto) 0.3 x10^3/uL (0.0-0.7) Basophils # (Auto) 0.2 x10^3/uL (0.0-0.2) Reticulocyte Count (auto) 7.4 % (0.5-2.5) Sodium Level 141 mmol/L (136-145) Potassium Level 4.3 mmol/L (3.5-5.1) Chloride Level 109 mmol/L (98-107) Carbon Dioxide Level 23 mmol/L (21-32) Anion Gap 9 (6-14) Blood Urea Nitrogen 38 mg/dL (8-26) Creatinine 2.6 mg/dL (0.7-1.3) Estimated GFR (Cockcroft-Gault) 32.3 BUN/Creatinine Ratio 15 (6-20) Glucose Level 83 mg/dL (70-99) Calcium Level 7.9 mg/dL (8.5-10.1) Total Bilirubin 1.9 mg/dL (0.2-1.0) Aspartate Amino Transf (AST/SGOT) 63 U/L (15-37) Alanine Aminotransferase (ALT/SGPT) 37 U/L (16-63) Alkaline Phosphatase 180 U/L (46-116) Total Protein 6.4 g/dL (6.4-8.2) Albumin 2.3 g/dL (3.4-5.0) Albumin/Globulin Ratio 0.6 (1.0-1.7) Meds Current Medications Acetaminophen (Tylenol) 650 mg PRN Q6HRS PRN PO HEADACHE Last administered on 07/02/17 00:42; Start 07/02/17 at 00:30 Amlodipine Besylate (Norvasc) 10 mg DAILY PO Last administered on 07/01/17 08 :10; Start 07/01/17 at 09:00 Sodium Bicarbonate (Sodium Bicarbonate) 1,300 mg TIDWMEALS PO Last administered on 07/01/17 17:25; Start 07/01/17 at 13:30 Sodium Chloride 1,000 ml @ 100 mls/hr Q10H IV Last administered on 10/11/17at 22:00; Start 07/01/17 at 12:00 Assessment Assessment IMPRESSION: 1. a/c CHF diastolic with normal EF 60-65% LVH 2. malignant HTN 3, Acute on chronic L knee pain with swelling acute gout flare 4. anemia SS chronic baseline Hgb 5.0-6.0 5. Sickle cell crisis with elevated retic count 8.3 on admission 6. CKD III baseline Cr 1.8-2.1 7. probable pulmonary HTN with PA pressure 40 06/2017 ECHO 8. valvular insufficiency mild MR tr TR ECHO 06/2017 9. Swelling medial calf noted on Venous US LLE 10.moderate chronic PCL malnutrition 11. abnormal LFTs with h/o chronic pancreatitis/cholelithiasis asymptomatic on admission 12. hypoxia chronic secondary to chronic anemia not acute respiratory failure 13. hypertensive heart disease with LVH diastolic HF PLAN 07/02/17 BP control is improving. Hb 5.7.Monitor as outpatient. Renal function unchanged. Overall improving. Ok to discharge. See me in office in 5 days on Thursday. Discharge Management - 35 minutes. 07/01/17 hypertensive urgency - metoprolol decreased to 50mg bid - norvasc increased to 10mg daily (only 5mg given 06/30) - hydralazine 10mg IV x one 06/30 - SBP >160 DBP >100 through night. Begin Norvasc and parameters for hyralazine written. D/W staff. ECHO hypertensive heart disease with LVH - BP this morning 163/95 not controlled ROXANNE - BUN 32 Cr 2.6 remains on Lasix 40mg daily - hold today if ok with nephrology - re eval in AM acute gout flare - not taking colcrys at home - only taking uloric - advised to continue both meds on discharge LLE pain/swelling - improved - sono medial L calf/popliteal negative. anemia - Hgb 6.3 continue to monitor CHF - Ad 156.3# today 151.31# hold lasix if okay with nephrology SSC - continue current POC Appreciate consultants assistance. 06/30/17 CHF -cardiology consult - ECHO pending - CXR mild pulmonary edema - Jake baseline BNP 300s - admit BNP 2405 - Lasix 40mg IV ED - chronic Lasix 40mg po daily -DC weight Jake 162# admit 156.38# LLE pain/swelling - h/o gout flare -check uric acid - continue uloric and restart colcrys 0.6mg daily - swelling improved - L medial calf soft tissue swelling noted = doppler tissue swell and post knee pending SSC - consult hematology -retic count 8.3 with admit WBC 13.8 today 13.2 - no sepsis anemia - Admit Hgb 6.2 today 6.1 monitor - transfuse less than 5.0 or symptomatic malignant HTN - Amlodipine 5mg daily, cardura 2mg at hs, increase metoprolol tart to 100mg daily and monitor for HR <55, hydralazine prn CKD III with worsening renal function - consult nephrology - Admit BUN 26 today 28 - Cr 2.2 today 2.3 elevated LFTS Admit T bili 2.0 AST 65 ALT 21 AP 174 monitor DVT/GI prophylaxis - OOB and ambulation Pepcid For more details regarding further plans, please refer to the orders. Plan Plan For more details regarding further plans, please refer to the orders. TAWANDA SALAS MD Jul 02, 2017 08:49
[2017-07-02] MEDS: COLCHICINE 0.6 MG TABLET PO SCH (08:51)
[2017-07-02] MEDS: SODIUM BICARBONATE 650 MG TABLET. PO SCH (08:51)
[2017-07-02] MEDS: amLODIPine BESYLATE 10 MG TABLET PO SCH (08:52)
[2017-07-02] MEDS: FAMOTIDINE 20 MG TABLET. PO SCH (08:52)
[2017-07-02] MEDS: POTASSIUM CHLORIDE 20 MEQ TABLET.ER. PO SCH (08:52)
[2017-07-02] MEDS: METOPROLOL TART IMMED RELEASE 50 MG TABLET. PO SCH (08:52)
[2017-07-02] MEDS: FUROSEMIDE 40 MG TABLET. PO SCH (08:52)
[2017-07-02] MEDS: FOLIC ACID 1 MG TABLET. PO SCH (08:52)
[2017-07-02] MEDS: HYDROcodone/APAP 10/325 1 TAB TABLET PO PRN (08:53)
[2017-07-02] MEDS: FEBUXOSTAT 40 MG TABLET PO SCH (08:53)
[2017-07-02] MEDS ORDERED: AMLO10TA2 PO (08:53)
--- NOTE | 2017-07-02 10:35 | PDOC ---
PROGRESS NOTES Subjective Subjective HPI -Sickle cell anemia with increasing pain in the right lower extremity, could be from sickle cell crisis. ROS - leg pains improving Objective Objective Vital Signs Date Time Temp Pulse Resp B/P (MAP) Pulse Ox O2 Delivery O2 Flow Rate FiO2 07/02/17 08:53 Room Air 07/02/17 08:52 84 142/89 07/02/17 07:00 98.2 18 92 98.2 07/01/17 08:00 2.0 Intake and Output 07/03/17 07:00 Intake Total 250 ml Output Total 1000 ml Balance -750 ml Intake Oral 250 ml Output Urine Total 1000 ml Physical Exam Heart: Normal S1, Normal S2 General: Alert, Oriented X3 Lungs: Clear to auscultation Neuro: Normal speech Psych/Mental Status: Mental status NL Assessment Assessment Problems Medical Problems: (1) Accelerated hypertension Status: Acute (2) Acute kidney failure Status: Acute (3) Chronic anemia Status: Acute IMPRESSION AND PLAN: 1. Sickle cell anemia with increasing pain in the right lower extremity, could be from sickle cell crisis. However, his hemoglobin was stable at 6.3 and reticulocyte count is 8.3. I would continue supportive care and pain management and folic acid supplementation. f/u Hb on 07/02/17 is worse at 5.7, but he is asymptomatic. Transfuse for Hb <5.0 or if symptomatic. I d/w RN 2. Congestive heart failure. Appreciate Cardiology consultation. Echocardiogram does not reveal any evidence of significant pulmonary hypertension. Comment Review of Relevant I have reviewed the following items katey (where applicable) has been applied. Labs Laboratory Tests Test 07/01/17 04:26 07/02/17 04:36 White Blood Count 12.5 x10^3/uL (4.0-11.0) 11.6 x10^3/uL (4.0-11.0) Red Blood Count 1.86 x10^6/uL (4.30-5.70) 1.68 x10^6/uL (4.30-5.70) Hemoglobin 6.3 g/dL (13.0-17.5) 5.7 g/dL (13.0-17.5) Hematocrit 18.1 % (39.0-53.0) 16.1 % (39.0-53.0) Mean Corpuscular Volume 97 fL (79-100) 96 fL (79-100) Mean Corpuscular Hemoglobin 34 pg (25-35) 34 pg (25-35) Mean Corpuscular Hemoglobin Concent 35 g/dL (31-37) 36 g/dL (31-37) Red Cell Distribution Width 25.3 % (11.5-14.5) 26.0 % (11.5-14.5) Platelet Count 166 x10^3/uL (140-400) 156 x10^3/uL (140-400) Neutrophils (%) (Auto) 43 % (31-73) 39 % (31-73) Lymphocytes (%) (Auto) 42 % (24-48) 45 % (24-48) Monocytes (%) (Auto) 11 % (0-9) 11 % (0-9) Eosinophils (%) (Auto) 2 % (0-3) 3 % (0-3) Basophils (%) (Auto) 1 % (0-3) 2 % (0-3) Neutrophils # (Auto) 5.4 x10^3uL (1.8-7.7) 4.6 x10^3uL (1.8-7.7) Lymphocytes # (Auto) 5.3 x10^3/uL (1.0-4.8) 5.3 x10^3/uL (1.0-4.8) Monocytes # (Auto) 1.4 x10^3/uL (0.0-1.1) 1.3 x10^3/uL (0.0-1.1) Eosinophils # (Auto) 0.3 x10^3/uL (0.0-0.7) 0.3 x10^3/uL (0.0-0.7) Basophils # (Auto) 0.1 x10^3/uL (0.0-0.2) 0.2 x10^3/uL (0.0-0.2) Sodium Level 140 mmol/L (136-145) 141 mmol/L (136-145) Potassium Level 4.6 mmol/L (3.5-5.1) 4.3 mmol/L (3.5-5.1) Chloride Level 105 mmol/L (98-107) 109 mmol/L (98-107) Carbon Dioxide Level 26 mmol/L (21-32) 23 mmol/L (21-32) Anion Gap 9 (6-14) 9 (6-14) Blood Urea Nitrogen 32 mg/dL (8-26) 38 mg/dL (8-26) Creatinine 2.6 mg/dL (0.7-1.3) 2.6 mg/dL (0.7-1.3) Estimated GFR (Cockcroft-Gault) 32.3 32.3 BUN/Creatinine Ratio 12 (6-20) 15 (6-20) Glucose Level 94 mg/dL (70-99) 83 mg/dL (70-99) Calcium Level 8.7 mg/dL (8.5-10.1) 7.9 mg/dL (8.5-10.1) Total Bilirubin 2.1 mg/dL (0.2-1.0) 1.9 mg/dL (0.2-1.0) Aspartate Amino Transf (AST/SGOT) 51 U/L (15-37) 63 U/L (15-37) Alanine Aminotransferase (ALT/SGPT) 25 U/L (16-63) 37 U/L (16-63) Alkaline Phosphatase 183 U/L (46-116) 180 U/L (46-116) Total Protein 6.8 g/dL (6.4-8.2) 6.4 g/dL (6.4-8.2) Albumin 2.5 g/dL (3.4-5.0) 2.3 g/dL (3.4-5.0) Albumin/Globulin Ratio 0.6 (1.0-1.7) 0.6 (1.0-1.7) Reticulocyte Count (auto) 7.4 % (0.5-2.5) Laboratory Tests Test 07/02/17 04:36 White Blood Count 11.6 x10^3/uL (4.0-11.0) Red Blood Count 1.68 x10^6/uL (4.30-5.70) Hemoglobin 5.7 g/dL (13.0-17.5) Hematocrit 16.1 % (39.0-53.0) Mean Corpuscular Volume 96 fL (79-100) Mean Corpuscular Hemoglobin 34 pg (25-35) Mean Corpuscular Hemoglobin Concent 36 g/dL (31-37) Red Cell Distribution Width 26.0 % (11.5-14.5) Platelet Count 156 x10^3/uL (140-400) Neutrophils (%) (Auto) 39 % (31-73) Lymphocytes (%) (Auto) 45 % (24-48) Monocytes (%) (Auto) 11 % (0-9) Eosinophils (%) (Auto) 3 % (0-3) Basophils (%) (Auto) 2 % (0-3) Neutrophils # (Auto) 4.6 x10^3uL (1.8-7.7) Lymphocytes # (Auto) 5.3 x10^3/uL (1.0-4.8) Monocytes # (Auto) 1.3 x10^3/uL (0.0-1.1) Eosinophils # (Auto) 0.3 x10^3/uL (0.0-0.7) Basophils # (Auto) 0.2 x10^3/uL (0.0-0.2) Reticulocyte Count (auto) 7.4 % (0.5-2.5) Sodium Level 141 mmol/L (136-145) Potassium Level 4.3 mmol/L (3.5-5.1) Chloride Level 109 mmol/L (98-107) Carbon Dioxide Level 23 mmol/L (21-32) Anion Gap 9 (6-14) Blood Urea Nitrogen 38 mg/dL (8-26) Creatinine 2.6 mg/dL (0.7-1.3) Estimated GFR (Cockcroft-Gault) 32.3 BUN/Creatinine Ratio 15 (6-20) Glucose Level 83 mg/dL (70-99) Calcium Level 7.9 mg/dL (8.5-10.1) Total Bilirubin 1.9 mg/dL (0.2-1.0) Aspartate Amino Transf (AST/SGOT) 63 U/L (15-37) Alanine Aminotransferase (ALT/SGPT) 37 U/L (16-63) Alkaline Phosphatase 180 U/L (46-116) Total Protein 6.4 g/dL (6.4-8.2) Albumin 2.3 g/dL (3.4-5.0) Albumin/Globulin Ratio 0.6 (1.0-1.7) Medications Current Medications Fentanyl Citrate (Fentanyl 2ml Vial) 50 mcg PRN Q15MIN PRN IV PAIN GREATER THAN 3/10 Last administered on 06/29/17 18:04; Start 06/29/17 at 14:30; Stop 06/30/17 at 14:29; Status DC Hydralazine HCl (Apresoline Inj) 10 mg 1X ONCE IVP Last administered on 14:48; Start 06/29/17 at 14:30; Stop 06/29/17 at 14:31; Status DC Aspirin (Edgard Aspirin) 325 mg 1X ONCE PO Last administered on 06/29/17 14:46 ; Start 06/29/17 at 14:30; Stop 06/29/17 at 14:31; Status DC Furosemide (Lasix) 40 mg 1X ONCE IVP Last administered on 06/29/17 14:45; Start 06/29/17 at 14:30; Stop 06/29/17 at 14:31; Status DC Ondansetron HCl (Zofran) 4 mg PRN Q8HRS PRN IV NAUSEA/VOMITING Last administered on 06/30/17 09:18; Start 06/29/17 at 14:45; Stop 06/30/17 at 14: 44; Status DC Fentanyl Citrate (Fentanyl 2ml Vial) 50 mcg PRN Q2HR PRN IV PAIN Last administered on 06/30/17 03:32; Start 06/29/17 at 14:45; Stop 06/30/17 at 14: 44; Status DC Acetaminophen (Tylenol) 650 mg PRN Q4HRS PRN PO FEVER Last administered on 13:52; Start 06/29/17 at 14:45; Stop 06/30/17 at 14:44; Status DC Hydralazine HCl (Apresoline Inj) 10 mg PRN Q4HRS PRN IVP ELEVATED BP, SEE COMMENTS Last administered on 06/30/17 09:15; Start 06/29/17 at 16:00 Calcium Carbonate/ Glycine (Tums) 500 mg 1X ONCE PO ; Start 06/29/17 at 17:00; Stop 06/29/17 at 17:01; Status Cancel Amlodipine Besylate (Norvasc) 5 mg DAILY PO Last administered on 06/30/17 09: 09; Start 06/30/17 at 09:00; Stop 06/30/17 at 16:31; Status DC Folic Acid (Folic Acid) 1 mg DAILY PO Last administered on 07/02/17 08:52; Start 06/30/17 at 09:00 Furosemide (Lasix) 40 mg DAILY PO Last administered on 07/02/17 08:52; Start 06/30/17 at 09:00 Acetaminophen/ Hydrocodone Bitart (Lortab 10/325) 1 tab PRN Q6HRS PRN PO PAIN Last administered on 07/02/17 08:53; Start 06/29/17 at 18:15 Metoprolol Tartrate (Lopressor) 50 mg BID PO Last administered on 06/29/17 20: 29; Start 06/29/17 at 21:00; Stop 06/30/17 at 07:52; Status DC Montelukast Sodium (Singulair) 10 mg HS PO Last administered on 07/01/17 21: 29; Start 06/29/17 at 21:00 Sodium Bicarbonate (Sodium Bicarbonate) 1,300 mg TID PO Last administered on 09:33; Start 06/29/17 at 21:00; Stop 07/01/17 at 13:16; Status DC Doxazosin Mesylate (Cardura) 2 mg DAILY PO ; Start 06/30/17 at 09:00; Stop 07/07 at 09:00; Status DC Febuxostat (Uloric) 80 mg DAILY PO Last administered on 07/02/17 08:53; Start 06/30/17 at 09:00 Potassium Chloride (Klor-Con) 20 meq [id number] PO Last administered on 08:52; Start 06/30/17 at 08:00 Doxazosin Mesylate (Cardura) 2 mg HS PO Last administered on 07/01/17 21:30; Start 06/30/17 at 21:00 Metoprolol Tartrate (Lopressor) 100 mg BID PO Last administered on 06/30/17 09:09; Start 06/30/17 at 09:00; Stop 06/30/17 at 16:31; Status DC Colchicine (Colcrys) 0.6 mg DAILY PO Last administered on 07/02/17 08:51; Start 06/30/17 at 09:00 Famotidine (Pepcid) 20 mg DAILY PO Last administered on 07/02/17 08:52; Start 06/30/17 at 15:30 Amlodipine Besylate (Norvasc) 10 mg DAILY PO Last administered on 07/02/17 08 :52; Start 07/01/17 at 09:00 Metoprolol Tartrate (Lopressor) 50 mg BID PO Last administered on 07/02/17 08 :52; Start 06/30/17 at 21:00 Sodium Chloride 1,000 ml @ 100 mls/hr Q10H IV Last administered on 07/01/17 22:00; Start 07/01/17 at 12:00 Sodium Bicarbonate (Sodium Bicarbonate) 1,300 mg TIDWMEALS PO Last administered on 07/02/17 08:51; Start 07/01/17 at 13:30 Acetaminophen (Tylenol) 650 mg PRN Q6HRS PRN PO HEADACHE Last administered on 07/02/17 00:42; Start 07/02/17 at 00:30 Active Scripts Active Amlodipine Besylate 10 Mg Tablet 10 Mg PO DAILY 30 Days Colcrys (Colchicine) 0.6 Mg Tablet 0.6 Mg PO DAILY Hydrocodone-Apap 10-325 (Hydrocodone Bit/Acetaminophen) 1 Each Tablet 1 Tab PO PRN Q6HRS PRN Metoprolol Tartrate 50 Mg Tablet 50 Mg PO BID Reported Uloric (Febuxostat) 80 Mg Tablet 80 Mg PO DAILY Potassium Chloride 20 Meq Tablet.er 20 Meq PO DAILY Furosemide 40 Mg Tablet 40 Mg PO DAILY Sodium Bicarbonate 650 Mg Tablet 2 Tab PO TID Montelukast Sodium Tablet (Montelukast Sodium) 10 Mg Tablet 10 Mg PO HS Cardura (Doxazosin Mesylate) 2 Mg Tablet 2 Mg PO DAILY Folic Acid 1 Mg Tablet 1 Mg PO DAILY Vitals/I & O Vital Sign - Last 24 Hours 07/01/17 07/01/17 07/01/17 07/01/17 11:00 15:00 15:13 16:13 Temp 98.4 98.5 98.4 98.5 Pulse 73 74 Resp 20 20 16 16 B/P (MAP) 135/87 (103) 137/90 (106) Pulse Ox 93 92 O2 Delivery Room Air Room Air 07/01/17 07/01/17 07/01/17 07/01/17 19:55 20:00 21:29 21:30 Temp 98.4 98.4 Pulse 81 81 Resp 18 B/P (MAP) 143/100 (114) 143/100 Pulse Ox 96 O2 Delivery Room Air Room Air Room Air 07/01/17 07/01/17 07/01/17 07/02/17 21:30 22:30 23:58 03:55 Temp 98.2 98.2 98.2 98.2 Pulse 81 73 79 Resp 20 17 B/P (MAP) 143/100 141/99 (113) 143/105 (118) Pulse Ox 93 92 O2 Delivery Room Air Room Air Room Air 07/02/17 07/02/17 07/02/17 07/02/17 07:00 08:52 08:52 08:53 Temp 98.2 98.2 Pulse 84 84 84 Resp 18 B/P (MAP) 142/89 (106) 142/89 142/89 Pulse Ox 92 O2 Delivery Room Air Room Air Intake and Output 07/02/17 07/02/17 07/03/17 15:00 23:00 07:00 Intake Total 250 ml Output Total 1000 ml Balance -750 ml LUZ MARIA HANNA MD Jul 02, 2017 10:35
[2017-07-02 11:00] VITALS: BP 141/94
--- NOTE | 2017-07-02 11:46 | PDOC ---
Renal-Progress Notes Subjective Notes Notes NO PAINS History of Present Illness Hx of present illness STABLE Vitals Vitals Vital Signs Date Time Temp Pulse Resp B/P (MAP) Pulse Ox O2 Delivery O2 Flow Rate FiO2 07/02/17 11:00 98.5 73 18 141/94 (110) 93 Room Air 98.5 07/01/17 08:00 2.0 Weight Weight [ ] I.O. Intake and Output Intake and Output 07/03/17 06:59 Intake Total 250 ml Output Total 1000 ml Balance -750 ml Intake Oral 250 ml Output Urine Total 1000 ml Labs Labs Laboratory Tests Test 07/02/17 04:36 White Blood Count 11.6 x10^3/uL (4.0-11.0) Red Blood Count 1.68 x10^6/uL (4.30-5.70) Hemoglobin 5.7 g/dL (13.0-17.5) Hematocrit 16.1 % (39.0-53.0) Mean Corpuscular Volume 96 fL (79-100) Mean Corpuscular Hemoglobin 34 pg (25-35) Mean Corpuscular Hemoglobin Concent 36 g/dL (31-37) Red Cell Distribution Width 26.0 % (11.5-14.5) Platelet Count 156 x10^3/uL (140-400) Neutrophils (%) (Auto) 39 % (31-73) Lymphocytes (%) (Auto) 45 % (24-48) Monocytes (%) (Auto) 11 % (0-9) Eosinophils (%) (Auto) 3 % (0-3) Basophils (%) (Auto) 2 % (0-3) Neutrophils # (Auto) 4.6 x10^3uL (1.8-7.7) Lymphocytes # (Auto) 5.3 x10^3/uL (1.0-4.8) Monocytes # (Auto) 1.3 x10^3/uL (0.0-1.1) Eosinophils # (Auto) 0.3 x10^3/uL (0.0-0.7) Basophils # (Auto) 0.2 x10^3/uL (0.0-0.2) Reticulocyte Count (auto) 7.4 % (0.5-2.5) Sodium Level 141 mmol/L (136-145) Potassium Level 4.3 mmol/L (3.5-5.1) Chloride Level 109 mmol/L (98-107) Carbon Dioxide Level 23 mmol/L (21-32) Anion Gap 9 (6-14) Blood Urea Nitrogen 38 mg/dL (8-26) Creatinine 2.6 mg/dL (0.7-1.3) Estimated GFR (Cockcroft-Gault) 32.3 BUN/Creatinine Ratio 15 (6-20) Glucose Level 83 mg/dL (70-99) Calcium Level 7.9 mg/dL (8.5-10.1) Total Bilirubin 1.9 mg/dL (0.2-1.0) Aspartate Amino Transf (AST/SGOT) 63 U/L (15-37) Alanine Aminotransferase (ALT/SGPT) 37 U/L (16-63) Alkaline Phosphatase 180 U/L (46-116) Total Protein 6.4 g/dL (6.4-8.2) Albumin 2.3 g/dL (3.4-5.0) Albumin/Globulin Ratio 0.6 (1.0-1.7) Review of Systems Constitutional: yes: weakness, alert, oriented Ears/Nose/Throat: Yes: no symptom reported Eyes: Yes: no symptom reported Pulmonary: Yes no symptom reported Cardiovascular: Yes no symptom reported Gastrointestional: Yes: no symptom reported Genitourinary: Yes: no symptom reported Musculoskeletal: Yes: leg pain Skin: Yes no symptom reported Psychiatric/Neurological: Yes: no symptom reported Physical Exam General Appearance: no apparent distress Respiratory: bilateral CTA Heart: S1S2 Abdomen: soft, bowel sounds present, rectal tube Genitourinary: bladder flat Neurology: alert, oriented, follow commands Musculoskeletal: Other Assessment Assessment IMP CKD STAGE 3 TO 4-CR STABLE AT 2.6 SICKLE CELL DZ/CRISIS-PAIN FREE NOW LEFT LE PAIN PROB DUE TO ABOVE-NO DVT ANEMIA-CHRONIC AND DUE TO SCD INCREASED LFT'S-BETTER [id number] PLAN OK TO D/C HAVE ENC COMPLIANCE WITH OP OFFICE FOLLOW UP IN THE RENAL CLINIC ANTHONY MARKHAM MD Jul 02, 2017 11:46
== END 2017-07-02 12:00 | disposition home or self-care (01) | DRG 682 ==
LOC: ER 12:30 → 2 SOUTH 14:08
PROVIDERS: ADMIT Internal Medicine; ATTEND Internal Medicine
DX: N17.9 Acute kidney failure, unspecified (principal); I50.33 Acute on chronic diastolic (congestive) heart failure; D57.00 Hb-SS disease with crisis, unspecified; I27.20 Pulmonary hypertension, unspecified; E44.0 Moderate protein-calorie malnutrition; K86.1 Other chronic pancreatitis; I13.0 Hypertensive heart and chronic kidney disease with heart failure and stage 1 through stage 4 chronic kidney disease, or unspecified chronic kidney disease; K59.00 Constipation, unspecified; K80.20 Calculus of gallbladder without cholecystitis without obstruction; G89.29 Other chronic pain; M25.562 Pain in left knee; N18.4 Chronic kidney disease, stage 4 (severe); I35.1 Nonrheumatic aortic (valve) insufficiency; M1A.9XX0 Chronic gout, unspecified, without tophus (tophi); I34.0 Nonrheumatic mitral (valve) insufficiency; R09.02 Hypoxemia; R79.89 Other specified abnormal findings of blood chemistry; R94.5 Abnormal results of liver function studies; Z68.21 Body mass index [BMI] 21.0-21.9, adult; Z87.891 Personal history of nicotine dependence; Z88.6 Allergy status to analgesic agent
CPT/HCPCS: 36415; 71010; 73564; 76881; 80048; 80053; 83880; 84484; 84550; 85007; 85025; 85045; 85610; 85730; 93005; 93306; 93971; 96374; 96375; J0360; J1940; J2405; J3010; J7030; 99285-25